=== PATIENT | female | born 1945 | race African-American/Black ===

== ENCOUNTER 2021-02-11 12:02 | Emergency (ER) | payer MEDICARE, SELFPAY ==
--- NOTE | ~2021-02-11 | XR_ITS ---
XR foot RT min 3V 02/11/2021 12:51 INDICATION: Right foot pain PROCEDURE: 4 views right foot COMPARISON: No prior studies for comparison. FINDINGS: Fracture, dislocation or subluxation is not identified. Lisfranc joint intact. There is a d egenerative calcaneal enthesophyte. There is mild soft tissue swelling lateral to the fifth MTP joint . No foreign bodies are identified. IMPRESSION: 1: NO ACUTE BONE OR JOINT ABNORMALITY IDENTIFIED. Reviewed, dictated and finalized at location A.
[2021-02-11 12:09] VITALS: BP 153/70; PULSE 105; RESP 16; TEMP 37.2; O2SAT 100
[2021-02-11 12:23] VITALS: BP 129/61; PULSE 105; RESP 16; TEMP 37.2; O2SAT 100
[2021-02-11] MEDS: ACETAMINOPHEN 500 MG TABLET 1000 MG PO (12:57)
[2021-02-11 13:18] LABS: Basophils Percent Auto 0.7 % (0.2-1.2); Eosinophils Absolute Auto 0.2 K/mm3 (0-0.3); Eosinophils Percent Auto 3.5 % (0-4.4); Hematocrit 24.8 % (37.0-47.0); Hemoglobin 7.5 g/dL (12.0-15.0); Immature Granulocyte Absolute 0.01 K/mm3 (0.00-0.031); Immature Granulocyte Percent A 0.2 % (0-0.5); Lymphocytes Absolute Auto 1.46 K/mm3 (0.9-3.2); Lymphocytes Percent Auto 24.3 % (18.3-44.2); Mean Corpuscular HGB Conc 30.2 g/dl (32-36); Mean Corpuscular Hemoglobin 26.2 pg (26-34); Mean Corpuscular Volume 86.7 fl (80-100); Mean Platelet Volume 10.3 fl (7.4-10.4); Monocytes Absolute Auto 0.5 K/mm3 (0.1-0.6); Neutrophils Absolute Auto 3.7 K/mm3 (1.3-6.7); Neutrophils Percent Auto 62.3 % (45.5-73.1); Platelet Count Result 331 k/mm3 (150-375); Red Blood Count 2.86 M/mm3 (4.2-5.4); Red Cell Distribution Width 16.8 % (11.5-14.5)
[2021-02-11 13:27] VITALS: TEMP 36.9
[2021-02-11 13:28] LABS: Anion Gap 12 mmol/L (8-16); Blood Urea Nitrogen 17 mg/dL (7-17); Calcium 9.7 mg/dL (8.4-10.2); Carbon Dioxide 24 mmol/L (22-30); Chloride 103 mmol/L (98-107); Estimated CRCL calculation 40 ml/min; Estimated Glomerular Filt Rate > 60; Glucose 131 mg/dL (65-110); Sodium 139 mmol/L (137-145); Uric Acid 3.6 mg/dL (2.5-7.5)
--- NOTE | 2021-02-11 14:40 | ED.GENADULT ---
HPI - General Adult General Chief complaint: Extremity Problem,Nontraumatic Stated complaint: right foot soreness Time Seen by Provider: 02/11/21 12:32 Source: RN notes reviewed History of Present Illness HPI narrative: Patient presents emergency department from home for right foot pain. Patient states symptoms been ongoing for 1 week. States the pain is between her fourth and fifth toe in the web space described as burning in nature she denies any trauma or injury she states that the area does at times appear moist she denies any pain rating to the foot or ankle states she is taking nothing for the pain Related Data Home Medications Medication Instructions Recorded Confirmed lisinopril 02/11/21 02/11/21 metformin mg PO 02/11/21 rosuvastatin mg 02/11/21 Allergies Allergy/AdvReac Type Severity Reaction Status Date / Time Sulfa (Sulfonamide Allergy Unknown Anaphylaxis Verified 02/11/21 12:26 Antibiotics) Review of Systems Review of Systems: Gen.: Denies fevers or chills Musculoskeletal: See HPI Neuro: Denies numbness, tingling, weakness Skin: Denies rash Endo: Denies DM PMFSH Past Medical History Medical History (Updated 02/11/21 @ 14:48 by David Escobar DO) Hypertension Social History Social History (Updated 02/11/21 @ 14:45 by David Escobar DO) Smoking status: Never smoker Exam Narrative: APPEARANCE: No acute distress, nontoxic, resting in bed Eyes: EOMI HEENT: Normocephalic, atraumatic, RESPIRATORY: No respiratory distress MUSCULOSKELETAl: Tenderness between the fourth and fifth webspace with mild erythema there is no swelling of the toes the remainder the foot is nontender dorsalis pedis pulse 2+ neurovascularly intact no open wounds NEURO: Awake and alert. Following commands, speech normal, no focal deficits SKIN:: Warm, dry. Normal Color no rash or lesions Course Course Emergency Course: Reviewed old records patient with last hemoglobin several years ago of 8. Patient denies any dizziness denies any black stools last follow-up with PCP Discussed with patient results of workup and diagnosis. Discussed need for follow-up with primary care, proper use of medication, and reasons to return to the emergency department. Patient understands and agrees to current treatment plan Vital Signs Vital signs: Vital Signs Temperature 98.9 F 02/11/21 12:09 Pulse Rate 105 H 02/11/21 12:09 Respiratory Rate 16 02/11/21 12:09 Blood Pressure 153/70 H 02/11/21 12:09 Pulse Oximetry 100 02/11/21 12:09 Temperature 99 F 02/11/21 12:23 Pulse Rate 105 H 02/11/21 12:23 Respiratory Rate 16 02/11/21 12:23 Blood Pressure 129/61 02/11/21 12:23 Pulse Oximetry 100 02/11/21 12:23 Medical Decision Making MDM Narrative Medical decision making narrative: Pain and mild erythema between the webspace of the fourth and fifth toe on the right foot it is likely fungal infection will start on antifungals Vital Signs Vital Signs: Vital Signs Temperature 98.9 F 02/11/21 12:09 Pulse Rate 105 H 02/11/21 12:09 Respiratory Rate 16 02/11/21 12:09 Blood Pressure 153/70 H 02/11/21 12:09 Pulse Oximetry 100 02/11/21 12:09 Temperature 99 F 02/11/21 12:23 Pulse Rate 105 H 02/11/21 12:23 Respiratory Rate 16 02/11/21 12:23 Blood Pressure 129/61 02/11/21 12:23 Pulse Oximetry 100 02/11/21 12:23 Lab Data Result diagrams: 02/11/21 13:12 02/11/21 13:12 Labs: Lab Results 02/11/21 02/11/21 Range/Units 13:12 13:12 WBC 6.0 (4.5-10.0) K/mm3 RBC 2.86 L (4.2-5.4) M/mm3 Hgb 7.5 L (12.0-15.0) g/dL Hct 24.8 L (37.0-47.0) % MCV 86.7 (80-100) fl MCH 26.2 (26-34) pg MCHC 30.2 L (32-36) g/dl RDW 16.8 H (11.5-14.5) % Plt Count 331 (150-375) k/mm3 MPV 10.3 (7.4-10.4) fl Immature Gran % (Auto) 0.2 (0-0.5) % Neut % (Auto) 62.3 (45.5-73.1) % Lymph % (Auto) 24.3 (18.3-44.2) % [place] % (Auto
[2021-02-11] MEDS: NYSTATIN OINTMENT 15 GM TUBE 1 APPLIC TOPICAL (15:03)
[2021-02-11 15:16] VITALS: BP 151/87; PULSE 98; RESP 18; TEMP 36.9; O2SAT 97
== END 2021-02-11 15:18 | disposition home or self-care (01) ==
PROVIDERS: Emergency Provider Emergency Medicine
DX: B35.3 Tinea pedis (principal); I10 Essential (primary) hypertension
CPT/HCPCS: 36415; 73630; 80048; 84550; 85025; 99283; A9270

== ENCOUNTER 2022-07-26 17:23 | Emergency (ER) | payer MEDICARE, SELFPAY ==
--- NOTE | ~2022-07-26 | US_ITS ---
EXAMINATION: US venous doppler LE RT DATE: 07/26/2022 20:19 INDICATION: R lateral thigh pain X 3d . TECHNIQUE: Grayscale images without and with compression and Doppler images of the right lower extrem ity veins were obtained. COMPARISON: None FINDINGS: The right common femoral vein, profunda (deep) femoral vein, femoral vein, popliteal vein, peroneal v ein, posterior tibial veins, gastrocnemius vein, and greater saphenous vein are patent. IMPRESSION: 1. Patent right lower extremity veins. No evidence of deep venous thrombosis. Reviewed, dictated and finalized at location K. OGRAPHY TECHNOLOGIST
--- NOTE | ~2022-07-26 | XR_ITS ---
EXAM: XR hip RT min 3V w AP pelvis, XR femur RT min 2V DATE: 07/26/2022 20:37 HISTORY: pain to R lateral thigh, Hx of hip repalcement . COMPARISON: CT abdomen and pelvis 10/13/2015. FINDINGS: Uncomplicated appearing bilateral proximal femoral fixation. Decreased mineralization. No fracture or dislocation. No lytic or blastic lesion. Degenerative change in the lower lumbar spine. B ilateral hip osteoarthritis. Severe degenerative change in the right knee. AVN changes in the right f emoral head. No erosion or periosteal change. Vascular calcification. IMPRESSION: No acute osseous finding in the pelvis, right hip, or right femur. Reviewed, dictated and finalized at location K. LATION INSPECTOR IMPRESSION: No acute osseous finding in the pelvis, right hip, or right femur.
[2022-07-26 17:27] VITALS: BP 146/89; PULSE 88; RESP 16; TEMP 36.6; O2SAT 99
--- NOTE | 2022-07-26 17:45 | ED.EXTPRO ---
HPI - Extremity Problem General Chief complaint: Extremity Problem,Nontraumatic <REGINE Maldonado Last Filed: 07/26/22 20:13> Stated complaint: right upper leg pain <REGINE Maldonado Last Filed: 07/26/22 20:13> Time Seen by Provider: 07/26/22 17:40 <REGINE Maldonado Last Filed: 07/26/22 20:13> Source: patient <REGINE Maldonado Last Filed: 07/26/22 20:13> Mode of arrival: ambulatory <REGINE Maldonado Last Filed: 07/26/22 20:13> Limitations: no limitations <REGINE Maldonado Last Filed: 07/26/22 20:13> History of Present Illness HPI Narrative: Patient is a 76-year-old female who presents the ED with report of pain to her right lateral thigh. Patient reports the pain first began on Tuesday. It has progressively worsened since then. Worse with ambulating. Described as throbbing. She states the pain is only her lateral thigh, does not radiate down her lower extremity. Denies hip or knee pain. No known injury or fall. No history of blood clots. No swelling of leg. She has been taking Tylenol with minimal relief. Denies abdominal pain, N/V, fevers, numbness/tingling. <REGINE Maldonado Last Filed: 07/26/22 20:13> Related Data Home medications: Home Medications Medication Instructions Recorded Confirmed lisinopril 40 mg tablet 02/11/21 02/11/21 metformin 500 mg tablet,extended mg PO 02/11/21 release 24 hr rosuvastatin 20 mg tablet mg 02/11/21 <REGINE Maldonado Last Filed: 07/26/22 20:13> Allergies/Adverse reactions: Allergies Allergy/AdvReac Type Severity Reaction Status Date / Time Sulfa (Sulfonamide Allergy Unknown Anaphylaxis Verified 02/11/21 12:26 Antibiotics) <REGINE Maldonado Last Filed: 07/26/22 20:13> Review of Systems Review of Systems: CONSTITUTIONAL: Denies fever, chills, or sweats. CARDIOVASCULAR: Denies chest pain. RESPIRATORY: Denies dyspnea. GASTROINTESTINAL: Denies abdominal pain, nausea, vomiting. SKIN: Denies rash or itching. MUSCULOSKELETAL: See HPI. NEUROLOGIC: Denies headache, numbness, or weakness. <Haylee Fierro PA-C - Last Filed: 07/26/22 20:13> All systems reviewed & are unremarkable except as noted in HPI and below <Haylee Fierro PA-C - Last Filed: 07/26/22 20:13> PMFSH Past Medical History Medical History: Medical History (Updated 07/26/22 @ 20:02 by Haylee Fierro PA-C) Hypertension <Haylee Fierro PA-C - Last Filed: 07/26/22 20:13> Surgical History Surgical History: Surgical History (Updated 07/26/22 @ 19:55 by Haylee Fierro PA-C) History of bilateral hip replacements <Haylee Fierro PA-C - Last Filed: 07/26/22 20:13> Social History Social History: Social History Smoking status: Never smoker <Haylee Fierro PA-C - Last Filed: 07/26/22 20:13> Exam Narrative: GENERAL: Well appearing, well-nourished, non-toxic, in no acute distress. HEAD: Normocephalic, atraumatic. NECK: Supple. No adenopathy, no masses. RESPIRATORY: Airway patent, respirations nonlabored. Clear to auscultation bilaterally, no rales, rhonchi, wheezing. CARDIOVASCULAR: Regular rate and rhythm without murmurs, rubs, or gallops. Pedal pulses 2+ and equal bilaterally. MUSCULOSKELETAL: Moves all extremities. Strength/ROM intact without gross deformities. No tenderness over right anterior lateral hip. Tenderness superficially along right lateral more distal thigh. No swelling or bruising noted. No deformities. No tenderness to the right knee. Full range of motion of hip and knee. Sharp touch sensation intact. No calf tenderness. No edema. No calf swelling. No temperature or color changes. SKIN: Warm, dry, normal color. No rashes. NEURO: A&O X3. Speech clear. Cranial nerves II-XII grossly intact. No ataxic moveme
[2022-07-26] MEDS: KETOROLAC 30 MG/ML VIAL (*BKC) IM (20:48)
== END 2022-07-26 21:37 | disposition home or self-care (01) ==
PROVIDERS: Emergency Provider Physician Assistant
DX: M79.651 Pain in right thigh (principal); I10 Essential (primary) hypertension; E11.9 Type 2 diabetes mellitus without complications; Z79.84 Long term (current) use of oral hypoglycemic drugs; Z96.643 Presence of artificial hip joint, bilateral
CPT/HCPCS: 73502; 73552; 93971; 96372; 99284; J1885

== ENCOUNTER 2022-07-27 17:10 | Emergency (ER) | payer MEDICARE, SELFPAY ==
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
[2022-07-27 18:02] VITALS: BP 144/76; PULSE 92; RESP 18; TEMP 36.4; O2SAT 100
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
== END 2022-07-27 19:32 | disposition home or self-care (01) ==
LOC: ANHED 19:04
PROVIDERS: Emergency Provider Emergency Medicine
DX: T75.89XA Other specified effects of external causes, initial encounter (principal); Z77.098 Contact with and (suspected) exposure to other hazardous, chiefly nonmedicinal, chemicals
CPT/HCPCS: 71045; 99283

== ENCOUNTER 2022-08-30 10:15 | Outpatient (RCR) | payer MEDICARE, SELFPAY ==
--- NOTE | 2022-08-10 10:57 | PCPTNOTE ---
Patient called & cancelled scheduled appointment this date due to having to care her sick child. She has been rescheduled.
--- NOTE | 2022-08-20 16:01 | PTOPEVAL1 ---
Assessment and note entered by Ophelia Torres, PT, DPT Evaluation Information Assessment Status Evaluation Diagnosis R hip pain Onset 2-4 weeks Subjective Information Pt states a few weeks ago her lateral thigh started to hurt so bad she was unable to walk. She states she has gotten 2 pain shots and these have helped for a few days. Pt rates her pain at a 15/ 10, she states her pain is 10/10 at its best. Pt states she would like to be able to walk without pain and be able to keep up with her 5 y/o granddaughter. Reported Pain Level Pain Score 10: Self Report Assessment PT Clinical Summary Jackson presents to therapy today for her initial evaluation with a diagnosis of R ITB syndrome. Today she demonstrates decreased active and passive hip and knee ROM that is limited by both pain and strength. Her R hip, knee, and ankle is weakened significantly compared to her uninvolved side. She ambulates with a flexed, antalgic, and unsteady gait with a strong L sided trunk lean to offload her RLE; she hold onto furniture, ojeda, and people to get around during her evaluation today. Pt reports tenderness to palpation of her R ITB but does not report a increase in pain with passive stretching of the same area. A timed gait and strength assessment was not assess today d/t safety concerns. Pt states she is going to follow up with her referring provider, she states she will need pain meds if she is going to continue with therapy. Skilled physical therapy services are indicated to manage pain, to improve strength, to improve safety awareness, to improve functional mobility, and to limit impairments. Plan of Care Interventions Electrical Stimulation,Gait Training,Hot Pack/Cold Pack,Manual Therapy,Neuro Re-education,Patient/ Caregiver Educati,Therapeutic Activities, Therapeutic Exercise,Ultrasound PT Services Indicated Yes Treatment Frequency and 2x/wk for 4 wks Duration These treatments will address the objective and functional deficits as defined above. The patient will be advanced safely and appropriately in order for the patient to progress towards his/her prior level of function. Additional exercises will be introduced and as well as a comprehensive home exercise program upon discharge, if needed, ?to ensure carryover of functional gains achieved in the clinic. This treatment plan has been reviewed and agreement upon by the patient.
--- NOTE | 2022-09-06 10:41 | PCPTNOTE ---
Pt NS for visit today. TABLET MACHINE OPERATOR called pt and she reorted she was sick and forgot to call.
--- NOTE | 2022-09-08 07:58 | PCPTNOTE ---
Pt cancelled today due to illness.
--- NOTE | 2022-09-13 11:03 | PCPTNOTE ---
Pt NS for her appt today when called she stated she was still sick and could not find the number to cancel her appt. She request to cancel remaining appointments.
--- NOTE | 2022-10-18 10:39 | PCPTNOTE ---
Called and left voicemail for patient as she has not returned to therapy in almost 6 weeks. Instructed her to call and advice to either discharge or reschedule. If she does not call within the next week she will be discharged.
--- NOTE | 2022-10-28 13:13 | PTOPDC ---
Assessment and note entered by Ophelia Torres, PT, DPT Evaluation Information Assessment Status Discharge - Pt Not Present Diagnosis R hip pain Onset 2-4 weeks Subjective Information Pt did not show up to scheduled re-evaluation this date. Assessment PT Clinical Summary Jackson was evaluations on 08/20/22 and completed 3 treatments between then today. She had 3 no shows and 3 cancellations. Pt will be discharged at this time d/t the attendance policy. Plan of Care PT Services Indicated Yes
== END 2022-10-28 13:47 | disposition home or self-care (01) ==
LOC: ANHGOSHPT 10:15
PROVIDERS: PCP Family Medicine; Visit Provider Family Medicine
DX: M76.30 Iliotibial band syndrome, unspecified leg (principal)
CPT/HCPCS: 97110; 97112; 97140; 97162; 97530; 99199

== ENCOUNTER 2023-07-08 10:40 | Emergency (ER) | payer MEDICARE, SELFPAY ==
--- NOTE | ~2023-07-08 | XR_ITS ---
EXAMINATION: XR hip BI 2V w AP pelvis DATE: 07/08/2023 11:51 INDICATION: Pain after fall TECHNIQUE: AP view of the pelvis and two views of each hip were obtained on six radiographs. COMPARISON: 07/26/2022 FINDINGS: There are changes of bilateral proximal femur fixation. Bone alignment is normal. No acute fracture is identified. There is mild osteoarthritis of the hips. There is moderate lower lumbar spon dylosis. IMPRESSION: 1. No acute osseous abnormality. Reviewed, dictated and finalized at location B. LE TIER AND LABELER
[2023-07-08 10:59] VITALS: BP 132/77; PULSE 95; RESP 16; TEMP 36.8; O2SAT 99
--- NOTE | 2023-07-08 11:24 | ED.FALL ---
HPI - Fall General Chief Complaint: Fall Stated Complaint: Fall Injury Source: patient Mode of arrival: wheelchair Limitations: no limitations History of Present Illness HPI Narrative: 77-year-old female presented for complaint of pain to the hips and buttocks after a fall yesterday. States she was walking backwards down stairs, thought she was at the bottom, but she had 3 more stairs and when she turned around she fell down the stairs on her buttocks. States she hit her head, but denies LOC. Denies headache or neck pain, dizziness, n/v. Denies pain radiating to the legs, numbness, tingling or weakness. States has pain to the buttocks when pushing on abdomen. States she is sore all over, pain is 10/10. Took Tylenol p.m. last night. Using wheelchair on arrival. Related Data Home Medications Medication Instructions Recorded Confirmed No Home Medications 08/03/22 07/08/23 Allergies Allergy/AdvReac Type Severity Reaction Status Date / Time Sulfa (Sulfonamide Allergy Unknown Anaphylaxis Verified 07/08/23 10:56 Antibiotics) Review of Systems Review of Systems: CONSTITUTIONAL: Denies body aches, fever, chills EYES: Denies visual changes CARDIOVASCULAR: Denies chest pain, palpitations, or edema. RESPIRATORY: Denies cough or dyspnea. GASTROINTESTINAL: Denies abdominal pain, nausea, vomiting, or diarrhea. SKIN: Denies rash, itching, or wounds. MUSCULOSKELETAL: reports back and hip pain NEUROLOGIC: Denies headache, numbness, tingling, or weakness. All systems reviewed & are unremarkable except as noted in HPI and below PMFSH Past Medical History Medical History Hypertension Surgical History Surgical History History of bilateral hip replacements Social History Social History Smoking status: Never smoker Lack of Transportation: No Lack of Food: Never True Current Housing: I Have Housing Concerned About Future Housing: No Difficulty Paying Gas/Electric Bills: No Difficulty Paying for Meds: No Currently Unemployed: No Difficulty w/ Childcare or Family Care: No Comments At time of signature, I have reviewed and agree with nursing past medical, surgical, social and family history unless otherwise noted. Please see nursing chart for further information. There is no relevant family history pertinent to the presenting complaint Exam Narrative: GENERAL: appears in pain; in no acute distress. HEAD: Normocephalic, atraumatic. EYES: conjunctivae clear NECK: Supple. full ROM CHEST: Speaks in full sentences. No respiratory distress. HEART: Regular rate and rhythm. Normal and equal peripheral pulses. ABD: Soft, flat; reports pain in butt with palpation of right lower abdomen. MUSC: Examined while in w/c. No Vertebral point tenderness, no sacral/coccyx tenderness. Tenderness to bilateral posterior hips with palpation. BLEs with normal strength and sensation, slightly decreased range of motion at hips, endorses hip/buttocks pain with movements. No ecchymosis, No open wounds, or obvious deformity; alignment normal, pulse palpable and equal bilaterally, skin warm, dry, pink. Capillary refill less than 3 seconds. Gait slow, sitting in w/c. SKIN: Warm, dry, no rash. NEURO: Alert and oriented x3. Back/Spine/Pelvis: Back/spine/pelvis image: 1. area of pain reported, tender hips with palpation Course Course Emergency Course: Patient is aware of diagnosis, understands and agrees to treatment plan. Anticipatory guidance given. Patient agrees to follow-up as directed and is aware of reasons to seek care at the emergency department. Portions of this record may have been created with voice recognition software Level of Care: Express Care Visit Vital Signs Vital signs: Vital Signs Temperature 98.3 F 07/08/23 10:59 Pulse
[2023-07-08] MEDS: IBUPROFEN 400 MG TABLET 800 MG PO (12:38)
== END 2023-07-08 12:40 | disposition short-term general hospital (02) ==
LOC: EXPGOSH 10:44
PROVIDERS: Emergency Provider Nurse Practitioner Family; PCP Family Medicine
DX: M25.552 Pain in left hip (principal); M25.551 Pain in right hip; I10 Essential (primary) hypertension; W10.9XXA Fall (on) (from) unspecified stairs and steps, initial encounter
CPT/HCPCS: 73521; 99213; A9270; G0463

== ENCOUNTER 2023-07-08 13:11 | Emergency (ER) | payer MEDICARE, SELFPAY ==
--- NOTE | ~2023-07-08 | CT_ITS ---
EXAMINATION: CT lumbar spine wo con DATE: 07/08/2023 15:44 INDICATION: Bilateral hip and tailbone pain post fall TECHNIQUE: Computed tomography (CT) of the lumbar spine was performed without intravenous contrast. A utomated exposure control and iterative reconstruction technique were employed. The dose-length produ ct was 1098.45 mGy-cm. COMPARISON: CT abdomen and pelvis dated 10/13/2015 FINDINGS: 2 mm anterolisthesis L3 on L4 and 4 mm anterolisthesis L4 on L5. 9 degrees thoracolumbar levocurvatur e. Vertebral body heights are normal. Subtle lucent nondisplaced fracture lines extending across the spinous processes of S1 and S2. Subtle cortical buckling along the anterior cortex cortex of the muco sa at the junction of S2 and S3 suggesting the fracture extends transversely but with a likely interv ening fracture plane unable to be clearly visualized. Severe left-sided predominant disc height loss at L3-L4 with associated Modic type III sclerotic endplate changes. Moderate disc height loss at T9-T 10, T10-T11, L4-L5 and with right-sided predominance at L1-L2 and L2-L3. Mild disc height loss at T11 -T12, T12-L1 and L5-S1. There are few sigmoid diverticula without adjacent inflammatory stranding to suggest diverticulitis. Partially visualized screws at the bilateral femoral heads for fixation of li gabby chronic bilateral proximal femoral fractures. The following disc levels are specifically discuss ed: T10-T11: There is moderate right and severe left facet joint osteoarthritis. There is mild right and moderate left neural foraminal stenosis. There is no central canal stenosis. T11-T12: There is severe bilateral facet joint osteoarthritis. There is mild bilateral neural foramin al stenosis. There is no central canal stenosis. T12-L1: Disc is bulging. There is mild bilateral facet joint osteoarthritis. There is no neural rizwan inal stenosis. There is mild central canal stenosis. L1-L2: Disc is bulging. There is moderate bilateral facet joint osteoarthritis. There is mild bilater al neural foraminal stenosis. There is mild central canal stenosis. L2-L3: Disc is bulging. There is hypertrophy of the ligamentum flavum. There is severe bilateral fac et joint osteoarthritis. There is mild bilateral neural foraminal stenosis. There is moderate central canal stenosis. L3-L4: Disc is bulging. There is hypertrophy of the ligamentum flavum. There is severe bilateral face t joint osteoarthritis. There is moderate right and moderate to severe left neural foraminal stenosis . There is severe central canal stenosis. L4-L5: Disc is bulging. There is hypertrophy of the ligamentum flavum. There is severe bilateral face t joint osteoarthritis. There is moderate right and moderate to severe left neural foraminal stenosis . There is severe central canal stenosis. L5-S1: Disc is bulging. There is severe bilateral facet joint osteoarthritis. There is mild bilateral neural foraminal stenosis. There is no central canal stenosis. IMPRESSION: 1. Difficult to visualize nondisplaced likely transverse sacral fracture at the level of S2 and S3. 2. Severe lumbar spondylosis without acute osseous abnormality. Reviewed, dictated and finalized at location A. EWER
[2023-07-08 13:13] VITALS: BP 137/97; PULSE 89; RESP 16; TEMP 36.8; O2SAT 98
--- NOTE | 2023-07-08 15:09 | ED.GENADULT ---
HPI - General Adult General Chief complaint: Extremity Injury, Lower Stated complaint: Fall, Bilateral Hip pain Time Seen by Provider: 07/08/23 15:00 Source: patient Related Data Allergies Allergy/AdvReac Type Severity Reaction Status Date / Time Sulfa (Sulfonamide Allergy Unknown Anaphylaxis Verified 07/08/23 10:56 Antibiotics) [facility] Past Medical History Medical History Hypertension Surgical History Surgical History History of bilateral hip replacements Social History Social History Smoking status: Never smoker Lack of Transportation: No Lack of Food: Never True Current Housing: I Have Housing Concerned About Future Housing: No Difficulty Paying Gas/Electric Bills: No Difficulty Paying for Meds: No Currently Unemployed: No Difficulty w/ Childcare or Family Care: No Course Vital Signs Vital signs: Vital Signs Temperature 36.8 C 07/08/23 13:13 Pulse Rate 89 07/08/23 13:13 Respiratory Rate 16 07/08/23 13:13 Blood Pressure 137/97 H 07/08/23 13:13 Pulse Oximetry 98 07/08/23 13:13 Oxygen Delivery Room Air 07/08/23 13:13 Temperature 36.8 C 07/08/23 13:13 Pulse Rate 89 07/08/23 13:13 Respiratory Rate 16 07/08/23 13:13 Blood Pressure 137/97 H 07/08/23 13:13 Pulse Oximetry 98 07/08/23 13:13 Oxygen Delivery Room Air 07/08/23 13:13 Medical Decision Making Medical Records Medical records reviewed: Yes I reviewed the external patient's medical records. Vital Signs Vital Signs: Vital Signs Temperature 36.8 C 07/08/23 13:13 Pulse Rate 89 07/08/23 13:13 Respiratory Rate 16 07/08/23 13:13 Blood Pressure 137/97 H 07/08/23 13:13 Pulse Oximetry 98 07/08/23 13:13 Oxygen Delivery Room Air 07/08/23 13:13 Temperature 36.8 C 07/08/23 13:13 Pulse Rate 89 07/08/23 13:13 Respiratory Rate 16 07/08/23 13:13 Blood Pressure 137/97 H 07/08/23 13:13 Pulse Oximetry 98 07/08/23 13:13 Oxygen Delivery Room Air 07/08/23 13:13 Imaging Data My impression: Impressions Lumbar Spine CT 07/08/23 16:12 IMPRESSION: 1. Difficult to visualize nondisplaced likely transverse sacral fracture at the level of S2 and S3. 2. Severe lumbar spondylosis without acute osseous abnormality. Radiologist's impression: bilateral x-ray of the hips with AP pelvis showed no acute osseous abnormality X-ray was done today at 11:51 a.m. Critical Care Time Critical Care Time Critical Care Time: No Discharge Plan Discharge Clinical Impression: Closed sacral fracture Patient Disposition: Home, Self-Care Condition: Stable Instructions: Sacral Fracture (ED) Additional Instructions: Return if symptoms are worsening , call doctor hammonds for appointment, continue home medications. Prescriptions: New hydrocodone-acetaminophen 5-325 mg tablet 1 tablet PO DAILY Qty: 20 0RF Follow-up/Referrals: Eliud Torres MD [Physician] - 07/13/23 Mil Parrish DO [Primary Care Provider] -
[2023-07-08] MEDS: IBUPROFEN 600 MG TABLET PO (15:53)
[2023-07-08] MEDS: HYDROcodone/acetaminophen (*CRX) 5-325 MG TABLET 1 TAB PO (15:53)
[2023-07-08 16:00] VITALS: BP 138/90; PULSE 86; RESP 18; O2SAT 98
== END 2023-07-08 17:37 | disposition home or self-care (01) ==
PROVIDERS: Emergency Provider Emergency Medicine; PCP Family Medicine
DX: S32.19XA Other fracture of sacrum, initial encounter for closed fracture (principal); I10 Essential (primary) hypertension; M47.816 Spondylosis without myelopathy or radiculopathy, lumbar region; W19.XXXA Unspecified fall, initial encounter
CPT/HCPCS: 72131; 73521; 99284; A9270

== ENCOUNTER 2023-07-15 08:46 | Emergency (ER) | payer MEDICARE, SELFPAY ==
--- NOTE | 2023-07-15 09:14 | ED.GENADULT ---
HPI - General Adult General Chief complaint: Unspecified Stated complaint: wants prescription for pain meds Time Seen by Provider: 07/15/23 08:54 History of Present Illness HPI narrative: 77-year-old female presented to the ED for a prescription medication issue. Patient was diagnosed with a sacral fracture a few days ago and patient was prescribed narcotic pain medication. The original prescription was written and has 1 pill per day for 20 days. Patient gets her prescriptions [facility] at [facility] as a policy that they were not able to fill any new narcotic pain prescription that is longer than 1 week for this reason patient was only given 7 pills of her initial prescription. Patient does have follow-up scheduled with spine on July 29. Patient states that her pain is still poorly controlled. Patient is uncomfortable appearing in the emergency department. Related Data Allergies Allergy/AdvReac Type Severity Reaction Status Date / Time Sulfa (Sulfonamide Allergy Unknown Anaphylaxis Verified 07/08/23 10:56 Antibiotics) Review of Systems Review of Systems: All systems reviewed & are unremarkable except as noted in HPI and below PMFSH Past Medical History Medical History Hypertension Surgical History Surgical History History of bilateral hip replacements Social History Social History Smoking status: Never smoker Lack of Transportation: No Lack of Food: Never True Current Housing: I Have Housing Concerned About Future Housing: No Difficulty Paying Gas/Electric Bills: No Difficulty Paying for Meds: No Currently Unemployed: No Difficulty w/ Childcare or Family Care: No Exam Narrative: APPEARANCE: Uncomfortable. HEAD: normocephalic, atraumatic. EYES: PERRLA/EOMI, conjunctivae clear. NOSE: Normal no drainage EARS:TMS clear with good light reflex. THROAT: Pharynx clear, no exudate. NECK: Supple. No adenopathy, no masses. RESPIRATORY: Airway patent, respirations nonlabored. Clear to auscultation bilaterally, no rales, rhonchi, wheezing. CARDIOVASCULAR: Regular rate and rhythm without murmurs rubs or gallops. ABDOMINAL: Soft, nontender, nondistended, normal bowel sounds MUSCULOSKELETAL: Tenderness and tailbone NEURO: Alert. Cranial nerves II through XII intact. Good gait. Good coordination SKIN: Warm, dry. Normal Color Course Course Emergency Course: 77-year-old female presented to the emergency department for a prescription issue. Patient will be provided a prescription for additional 14 pills [place]. Patient was encouraged to continue to have close follow-up with her physicians. Discharge Plan Discharge Clinical Impression: Closed sacral fracture Patient Disposition: Home, Self-Care Condition: Stable Instructions: Antibiotic Form, Sacral Fracture (ED) Additional Instructions: Continue to have follow-up with your physicians as scheduled. If you have any worsening symptoms then please call or return to the emergency department. Prescriptions: New hydrocodone-acetaminophen 5-325 mg tablet 1 tablet PO Q12H PRN (Reason: pain) Qty: 14 0RF No Action hydrocodone-acetaminophen 5-325 mg tablet 1 tablet PO DAILY Qty: 20 0RF Follow-up/Referrals: UNKNOWN,DOCTOR [Non-Staff] -
[2023-07-15] MEDS: HYDROcodone/acetaminophen (*CRX) 5-325 MG TABLET 1 TAB PO (09:36)
== END 2023-07-15 10:06 | disposition home or self-care (01) ==
LOC: ANHED 09:29
PROVIDERS: Emergency Provider Emergency Medicine
DX: S32.10XD Unspecified fracture of sacrum, subsequent encounter for fracture with routine healing (principal); Z76.0 Encounter for issue of repeat prescription; I10 Essential (primary) hypertension; Z96.643 Presence of artificial hip joint, bilateral; X58.XXXD Exposure to other specified factors, subsequent encounter
CPT/HCPCS: 99283; A9270

== ENCOUNTER 2024-09-17 19:48 | Emergency (ER) | payer MEDICARE, SELFPAY ==
[2024-09-17 20:04] VITALS: BP 170/80; PULSE 101; RESP 17; TEMP 36.9; O2SAT 98
[2024-09-17 23:46] VITALS: O2SAT 100
[2024-09-18] VITALS: O2SAT 100
[2024-09-18 00:01] VITALS: BP 141/82; O2SAT 100
--- NOTE | 2024-09-18 00:24 | PC.NURSE ---
supplies at bedside for I+D
[2024-09-18 00:32] VITALS: O2SAT 100
[2024-09-18 00:45] VITALS: O2SAT 100
[2024-09-18] MEDS: LIDOCAINE 1% LOCAL INJ 10 ML VIAL INFILTRATE (00:48)
--- NOTE | 2024-09-18 00:49 | PC.NURSE ---
jenna jiménez at bedside for I+D
--- NOTE | 2024-09-18 00:55 | ED.WOUNDLAC ---
HPI - Wound/Laceration General Chief Complaint: Wound/Laceration Stated Complaint: boil on vagina Time Seen by Provider: 09/17/24 23:39 History of Present Illness HPI narrative: 79-year-old female presents to the emergency department for painful lump to her left labia for 3 days. States she has been using topical prid without improvement. No spontaneous drainage or fevers. Denies history of similar presentation. Related Data Allergies Allergy/AdvReac Type Severity Reaction Status Date / Time Sulfa (Sulfonamide Allergy Unknown Anaphylaxis Verified 07/08/23 10:56 Antibiotics) Review of Systems Review of Systems: All systems reviewed & are unremarkable except as noted in HPI and below PMFSH Past Medical History Medical History Hypertension Surgical History Surgical History History of bilateral hip replacements Social History Social History Smoking status: Never smoker Lack of Transportation: No Lack of Food: Never True Current Housing: I Have Housing Concerned About Future Housing: No Difficulty Paying Gas/Electric Bills: No Difficulty Paying for Meds: No Currently Unemployed: No Difficulty w/ Childcare or Family Care: No Exam Narrative: GENERAL: Well-appearing, well-nourished, and in no acute distress. HEAD: Normocephalic, atraumatic. EYES: EOMI. ENT: Nares clear, no rhinorrhea or epistaxis. Mucous membranes moist. NECK: Supple. CHEST: Clear to auscultation. No respiratory distress. HEART: Regular rate and rhythm. No murmur heard. Normal peripheral pulses. ABDOMEN: Soft, nontender, nondistended, normal active bowel sound : Approximately 2 cm nodular lesion to the left labia with central fluctuance, no spontaneous drainage. Areas tenderness to palpation. Bartholin's glands unremarkable EXTREMITIES: Normal range of motion. No edema. SKIN: Warm, dry, no rash. NEURO: No focal deficits. Alert and oriented x3 Course Vital Signs Vital signs: Vital Signs Temperature 98.5 F 09/17/24 20:04 Pulse Rate 101 H 09/17/24 20:04 Respiratory Rate 17 09/17/24 20:04 Blood Pressure 170/80 H 09/17/24 20:04 Pulse Oximetry 98 09/17/24 20:04 Oxygen Delivery Room Air 09/17/24 20:04 Temperature 98.5 F 09/17/24 20:04 Pulse Rate 101 H 09/17/24 20:04 Respiratory Rate 17 09/17/24 20:04 Blood Pressure 170/80 H 09/17/24 20:04 Pulse Oximetry 98 09/17/24 20:04 Oxygen Delivery Room Air 09/17/24 20:04 Procedures Abscess I/D other: Date of Incision: 09/18/24 Time of Incision: 01:00 Side (if applicable): left Local Anesthetic: lidocaine 1% Amount of anesthesia used (mL): 3 Technique: incised with #11 blade Amount of fluid expressed (mL): 2 Packing used?: none I&D Results: Blood MDM - Wound/Laceration MDM Narrative Medical decision making narrative: 79-year-old female presents emergency department for painful lump to her left labia for 3 days. Vitals with the blood pressure, otherwise unremarkable. Patient is afebrile and nontoxic appearing. Exam is significant for 2 cm nodular lesion to the left labia with central fluctuance. Local lidocaine applied and lesion incised with an 11 blade with sanguinous drainage. No purulent drainage. Concern for possible abscess, therefore patient was started on Augmentin and doxycycline to cover for this. I advised to follow-up with gynecology discussed she may need a biopsy if lesion does not resolve with antibiotics as this may be a presentation of labial cancer. She is requesting something for pain, Ne[place] provided. Discussed return precautions. She is agreeable with the plan verbalized understanding. Discharged in stable condition. Discharge Plan Discharge Clinical Impression: Abscess of labia Patient Disposition: Home, Self-Care Condition: Stable Instructions: Antibiotic Form, Abscess (ED) Additional Instructions: You were evaluated in the emergency department for painful lump to your labia. We attempted to drain this but unfortunately did not get any pus out of it. This may be secondary to an infection for which she has been started on antibiotics. You need to follow-up with a glove former to ensure it is improving. If the lump is not improving, you may need a biopsy to evaluate for cancer as discussed. Return to the emergency department if you develop fever, significantly worsening pain or size of lump, or other concerning symptoms. Patient Language: Slovenian Prescriptions: New amoxicillin-pot clavulanate 875-125 mg tablet 1 tablet PO Q12H Qty: 14 0RF hydrocodone-acetaminophen 5-325 mg tablet 1 tablet PO Q8H PRN (Reason: pain) Qty: 10 0RF doxycycline monohydrate 100 mg capsule 100 mg PO BID Qty: 14 0RF No Action hydrocodone-acetaminophen 5-325 mg tablet 1 tablet PO DAILY Qty: 20 0RF hydrocodone-acetaminophen 5-325 mg tablet 1 tablet PO Q12H PRN (Reason: pain) Qty: 14 0RF Follow-up/Referrals: Nimesh Phipps MD [Physician] - PHYSICIAN,EMOTIONAL DISABILITIES TEACHER [Primary Care Provider] -
[2024-09-18 01:22] VITALS: O2SAT 100
[2024-09-18] MEDS: HYDROcodone/acetaminophen (*CRX) 5-325 MG TABLET 1 TAB PO (01:31)
[2024-09-18] MEDS: AMOXICILLIN/CLAVULANATE K 875-125 MG TAB 1 TABLET PO (01:31)
[2024-09-18] MEDS: DOXYCYCLINE HYCLATE 100 MG TABLET PO (01:31)
[2024-09-18 01:42] VITALS: BP 141/82; PULSE 80; RESP 16; O2SAT 100
== END 2024-09-18 01:43 | disposition home or self-care (01) ==
PROVIDERS: Emergency Provider Physician Assistant
DX: N76.4 Abscess of vulva (principal); I10 Essential (primary) hypertension
CPT/HCPCS: 56405; 99283; A9270; J2003

== ENCOUNTER 2024-11-11 13:39 | Emergency (ER) | payer MEDICARE, SELFPAY ==
[2024-11-11 13:41] VITALS: BP 152/82; PULSE 107; RESP 20; TEMP 36.6; O2SAT 100
--- OUTSIDE RECORDS SUMMARY | 2024-11-11 13:42 | XMS_ITS | Clinical Summary ---
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 Gender Identity Not on file Sexual Orientation Not on file Plan of Treatment Health Maintenance Due Date Last Done Comments DEXA Bone Density 1945 Hepatitis C Virus (HCV) Screening 1945 TdaP Immunization 1945 Pneumococcal Immunization (5 0+ years) (1 of 1 - PCV) 09/15/1993 Zoster Immunization (1 of 2) 09/15/1993 Respiratory Syncytial Virus (RSV) Immunization (Adult) (1 - 1-dose 75+ series) 09/15/2018 Influenza Immunization (#1) 2024 SARS-COV-2 Immunization (2023- season) 2024 Hepatitis B Immunization Aged Out No longer eligible based on patient's age to complete this topic Meningococcal Immunization (ACWY) Aged Out No longer eligible based on patient's age to complete this topic Rotavirus Immunization Aged Out No lo nger eligible based on patient's age to complete this topic
--- OUTSIDE RECORDS SUMMARY | 2024-11-11 13:42 | XMS_ITS | Encounter Summary ---
Author Organization [facility] Health Address [facility] [facility] [place] [address] Care Team Providers Care Collection Systems Modeler Name Role Phone Lucina Cobb DO Primary Care Provider [phone] Dario Villafana MD Unavailable Reason for Visit * Reason Onset Date Comments MEDICATION REFILL 11/25/2017 Encounter Details Date Type Department Care Team (Late st Contact Info) Description 11/25/2017 Refill [facility] General Internal Medicine [address] [facility] [address] [place] [address] Lucina Cobb DO [address] [facility] [place] [id number] MEDICATION REFILL Social History Tobacco Use Types Packs/Day Years Used Date Smoking Tobacco: Never Smokeless Tobacco: Former Snuff Quit: 1960 Alcohol Use Standard Drinks/Week Comments No 0 (1 standard drink = 0.6 oz pur e alcohol) Comments Unknown Sex and Gender Information Value Date Recorded Sex Assigned at Not on file 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 Gender Identity Not on file Sexual Orientation Not on file documented as of this encounter Miscellaneous Notes * Telephone Encounter - Karthik Barragan - 11/25/2017 1:54 PM CDT [facility] ATTACHED REFILL REQUEST SENT PER PROTOCOL MIKE 08-12-17 NOV 12-01-17 documented in this encounter Plan of Treatment Not on file documented as of this encounter Visit Diagnoses Not on filedocumented in this encounter Care Teams Collection Systems Modeler Relationship Specialty Start Date End Date Lucina Cobb DO [address] [place] [address] PCP - General 11/15/17 Dario Villafana MD [address] [place] [address] Surgeon Ophthalmology 06/22/22 documented as of this encounter
--- OUTSIDE RECORDS SUMMARY | 2024-11-11 13:42 | XMS_ITS | Encounter Summary ---
Author Organization [facility] Health Address [address] [place] [address] [place] [address] Care Team Providers Care Brickmason Contractor Name Role Phone Lucina Cobb DO Primary Care Provider [phone] Dario Villafana MD Unavailable [phone] Reason for Visit * Reason Onset Date Comments Opened In Error 08/04/2018 Encounter Details Date Type Department Care Team (Late st Contact Info) Description 08/04/2018 Refill [facility] General Internal Medicine [address] [id number] Lucina Cobb DO [address] [facility] [address] [facility] [place] [place] [address] Opened In Error Social History Tobacco Use Types Packs/Day Years Used Date Smoking Tobacco: Never Smokeless Tobacco: Former Snuff Quit: 1960 Alcohol Use Standard Drinks/Week Comments No 0 (1 standard drink = 0.6 oz pur e alcohol) Comments No Sex and Gender Information Value Date Recorded Sex Assigned at Not on file 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
--- OUTSIDE RECORDS SUMMARY | 2024-11-11 13:42 | XMS_ITS | Clinical Summary ---
Author Organization [facility] Address [address] [place] [address] Care Team Providers Care Plywood Layup Line Core Layer Name Role Phone Lucina Cobb Primary Care Provider [phone] Dario Villafana MD Unavailable [phone] Source Comments [facility],non-owned Affiliates and Associated Physician Practices is amultiple site organization consisting of ambulatory clinics and hospital sitesin [place], [place], [place] and [place]. This disclosure is being madepursuant to the Care Everywhere program and may not contain all information available regarding this patient. Last updated 18.[facility] Allergies Active Allergy Reactions Criticality Noted Date Comments Sulfamethoxazole W-Trimethoprim Shortness of Breath High 08/03/2017 Medications * Be aware that medications may not be up to date on this document. Alwaysverify current medications with the patient. rosuvastatin (CRESTOR) 20 MG tabletIndications: Hyperlipidemia, unspecified hyperlipidemia type Take 1 (one) tablet by mouth once daily 90 tablet 3 08/18/19 22 Active acetaminophen-code ine (TYLENOL #3) 300-30 MG tablet Take 1 (one) tablet by mouth every 6 hours as needed for Pain 30 tablet 08/18/19 22 Active Additional Information Patient not taking.Reported on 06/22/2022 cyclobenzaprine (Flexeril) 10 MG tabletIndications: Acute pain of right shoulder Take 1 tablet by mouth three times daily as needed for muscle spasm 20 tablet 07/07/20 22 Active cephalexin (Keflex) 500 MG capsule TAKE 1 CAPSULE BY MOUTH EVERY 6 HOURS 10/14/19 23 Active HYDROcodone-acetam inophen (Chugwater) 7.5-325 MG tablet TAKE 1 TABLET BY MOUTH EVERY 6 HOURS NEEDED FOR PAIN (FOR DENTAL ABSCESS) 10/14/19 23 Active bimatoprost (Lumigan) 0.01 % ophth solution Instill 1 (one) drop into both eyes at bedtime 2.5 mL 11 11/10/19 23 Active timolol maleate (Timoptic) 0.5 % ophthalmic solution Instill 1 (one) drop into both eyes every morning 5 mL 11 11/10/19 23 Active lisinopril (Prinivil; Zestril) 40 MG tabletIndications: Essential hypertension Take 1 tablet by mouth once daily 90 tablet 1 05/24/20 23 Active lidocaine (Lidoderm) 5 % patchIndications:C hronic bilateral low back pain without sciatica APPLY TWO PATCHES TO THE SKIN ONCE DAILY TO MOST PAINFUL AREA. LEAVE ON FOR UP TO 12 HOURS, THEN DON'T USE MORE PATCHES FOR 12 HOURS 60 patch 3 09/30/19 24 Active Active Problems Problem Noted Date Diagnosed Date Depression 07/20/2016 Avascular necrosis of femoral head, right 2014 Nocturia 01/01/2015 Osteoarthritis of spine with radiculopathy, lumb ar region 12/03/2014 Spinal stenosis 12/03/2014 Spondylolisthesis of lumbar region 12/03/2014 Hypovitaminosis D 03/04/2014 Hypercalcemia 01/29/2013 DM type 2 (diabetes mellitus, type 2) 09/04/2012 Dyslipidemia 09/04/2012 HTN (hypertension) 09/04/2012 Colon cancer screening Primary open angle glaucoma (POAG) of left eye, severe stage Primary open angle glaucoma (POAG) of right eye, mild stage Immunizations Immunization Administration Dates Next Due DT (AGE 0-7) 05/18/1997 HEP A VACCINE, ADULT 11/09/2016 PNEUMOCOCCAL PPSV23 12/22/2012,09/04/2012 Pneumococcal Pcv13 Conj 04/15/2016 TDAP (7yrs+) 09/04/2012 ZOSTER VACCINE, LIVE 12/22/2012 Family History Medical History Relation Name Comments Diabetes - Type 2 Paternal Grandfather Relation Name Status Comments Paternal Grandfather Social History Tobacco Use Types Packs/Day Years Used Date Smoking Tobacco: Never Smokeless Tobacco: Former Snuff Quit: 1960 Alcohol Use Standard Drinks/Week Comments No 0 (1 standard drink = 0.6 oz pur e alcohol) PHQ-2 Answer Date Recorded PHQ2 TOTAL SCORE 0 08/18/2021 Comments No Sex and Gender Information Value Date Recorded Sex Assigned at Not on file Legal Sex Female 6:18 AM COMPENSATION BUSINESS PARTNER Gender Identity Not on file Sexual Orientation Not on file Last Filed Vital Signs Vital Sign Reading Time Taken Comments Blood Pressure 150/90 11/02/2022 6:11 AM CDT Pulse 88 11/02/2022 6:11 AM CDT Temperature 36.6 C (97.8 F) 11/02/2022 6:11 AM CDT Respiratory Rate 18 11/02/2022 6:11 AM CDT Oxygen Saturation 100% 11/02/2022 6:11 AM CDT Inhaled Oxygen Concentration - - Weight 73 kg (161 lb) 11/02/2022 6:10 AM CDT Height 160 cm (5' 3 ) 11/02/2022 6:10 AM CDT Body Mass Index 28.52 11/02/2022 6:10 AM CDT Plan of Treatment Health Maintenance Due Date Last Done Comments ZOSTER VACCINE (2 of 3) 02/16/2013 12/22/2012 Respiratory Syncytial Virus (RSV) Vaccine Pt: or over 60 yrs (1 - 1-dose 75+ series) 09/15/2018 DIABETES-SERUM CREATININE 02/25/20222020, 02/27/2019, 03/24/2018, Additional history exists DTAP/TDAP/TD VACCINES (3 - Td or Tdap) 09/04/2022 09/04/2012, 05/18/1997 DIABETES-HGB A1C 12/21/2022 06/22/2022, 07/2021, 03/12/2021, Additional history exists DIABETES-FOOT EXAM WITH MONOFILAMENT 06/22/2023 06/22/2022, 09/23/2020, 02/27/2019, Additional history exists COVID-19 VACCINE ( season) 2024 DEPRESSION SCREENING 07/18/2024 07/07/2022, 06/22/2022, 06/22/2022 DIABETES - URINE PROTEIN SCREENING 07/18/2024 12/24/2013 MEDICARE AWV CALENDAR YEAR 2024 09/23/2020, 10/24/2018 DIABETES RETINOPATHY SCREENING 11/09/2024 11/09/2022, 11/12/2021, 03/05/2021, Additional history exists INFLUENZA VACCINE (Season Ended) 2025 PNEUMOCOCCAL VACCINE 50+ Completed 016, 12/22/2012, 09/04/2012 BONE DENSITY TESTING Discontinued HEPATITIS B VACCINE Aged Out No longe r eligible based on patient's age to complete this topic HIB VACCINE Aged Out No longer eligi ble based on patient's age to complete this topic HPV VACCINE Aged Out No longer eligi ble based on patient's age to complete this topic MENINGOCOCCAL (Group B) VACCINE SHARED DECISION-MAKING Aged Out No longer eligible based on patient's age to complete this topic MENINGOCOCCAL GROUPS A/C/Y/W VACCINE Aged Out No longer eligible based on patient's age to complete this topic Procedures Procedure Name Priority Date/Time Associated Diagnosis Comments HEMOGLOBIN A1C - POINT OF CARE (AMB) [facility] Routine 06/22/2022 7:58 AM COMPENSATION BUSINESS PARTNER Type 2 diabetes mellitus without complication, without long-term current use of insulin BASIC METABOLIC PANEL (CALCIUM TOTAL) Routine 02/25/2021 1:55 PM CDT Type 2 diabetes mellitus with other specified complication, without long-term current use of insulin NE 3 COMP FOOT EXAM COMPLETED Routine 12/01/2017 Type 2 diabetes mellitus without complication, without long-term current use of insulin MICROALBUMIN URINE RANDOM Timed 12/24/2013 1:09 PM CDT from Last 3 Months or Most Recently Relevant to Health Maintenance Results * HEMOGLOBIN A1C - POINT OF CARE (AMB) [facility] (06/22/2022 7:58 AM COMPENSATION BUSINESS PARTNER) Hemoglobin A1c POCT 6.5 % BLOOD SPECIMEN / Unknown 06/22/2022 7:58 AM COMPENSATION BUSINESS PARTNER us Lucina Cobb DO LAB - POINT OF CARE ORDERABLE S Final Result * (ABNORMAL) BASIC METABOLIC PANEL (CALCIUM TOTAL) (02/25/2021 1:55 PM CDT) BUN 24 7 - 26 mg/dL 02/25/2021 2:53 PM [facility] Creatinine 1.13(H) 0.56 - 0.96 mg/dL 02/25/2021 2:53 PM [facility] Sodium 144 136 - 145 mmol/L 02/25/2021 2:53 PM [facility] Potassium 4.1 3.5 - 4.5 mmol/L 02/25/2021 2:53 PM [facility] Chloride 107 98 - 107 mmol/L 02/25/2021 2:53 PM [facility] CO2 25 22 - 29 mmol/L 02/25/2021 2:53 PM [facility] Glucose 121(H) 70 - 115 mg/dL 02/25/2021 2:53 PM [facility] Calcium 9.6 8.4 - 10.2 mg/dL 02/25/2021 2:53 PM [facility] Anion Gap 16 8 - 18 02/25/2021 2:53 PM [facility] BUN/Creatinine Ratio 21 7 - 23 02/25/2021 2:53 PM [facility] Osmolality Calculated 303(H) 270 - 300 mOsm/kg 02/25/2021 2:53 PM [facility] eGFR by CKD-EPI 47(L) >=90 mL/min/1.7 3 m2 02/25/2021 2:53 PM [facility] Blood BLOOD SPECIMEN / Unknown Lab Venipuncture / Unknown 02/25/2021 1:55 PM CDT 02/25/2021 2:27 PM T us Lucina Cobb DO LAB - CHEMISTRY ORDERABLES Fi nal Result [facility] [address] [place] [address], [facility] [phone] * NE 3 COMP FOOT EXAM COMPLETED (Automatically Completed) (12/01/2017) Genes Lucina Cobb, DO - 12/01/2017 left and right foot/feet examined with shoes and socks removed. Visual inspection was normal. Sensory exam with monofilament was within normal limits. Dorsal pedal and posterior tibial pulses were within normal limits. us Lucina Cobb DO NE - PROFESSIONAL SERVICES Fi nal Result * MICROALBUMIN URINE RANDOM (12/24/2013 1:09 PM CDT) Albumin Random Urine 97.0 Not Established mcg/mL [facility] Urine specimen (specimen) (Urine, unspecified source) 12/24/2013 1:09 PM CDT 12/24/2013 2:01 PM CDT us Jackie Bennett MD LAB - URINE CHEMISTRY ORDERAB LES Final Result [address] [phone] from Last 3 Months or Most Recently Relevant to Health Maintenance Insurance [facility] MANAGED MEDICARE ADV [facility] MANAGED MEDICARE ADV Care Teams Plywood Layup Line Core Layer Relationship Specialty Start Date End Date Lucina Cobb DO [address] [place] [address] PCP - General 11/15/17 Dario Villafana MD [facility] [place] [address] Surgeon Ophthalmology 06/22/22
--- OUTSIDE RECORDS SUMMARY | 2024-11-11 13:42 | XMS_ITS | Encounter Summary ---
Author Organization [facility] Health Address [facility] [facility] [address] Care Team Providers Care Java Mobile Developer Name Role Phone Lucina Cobb DO Primary Care Provider Dario Villafana MD Unavailable [phone] Reason for Visit * Reason Onset Date Comments MEDICATION REFILL 01/01/2019 Encounter Details Date Type Department Care Team (Late st Contact Info) Description 01/01/2019 Refill [facility] [address] [facility] [address] [place] [address] Lucina Cobb DO [address] [facility] [place] [id number] MEDICATION REFILL Social History Tobacco Use Types Packs/Day Years Used Date Smoking Tobacco: Never Smokeless Tobacco: Former Snuff Quit: 1960 Alcohol Use Standard Drinks/Week Comments No 0 (1 standard drink = 0.6 oz pur e alcohol) Comments No Sex and Gender Information Value Date Recorded Sex Assigned at Not on file Legal Sex Female 6:18 AM SPRAY MIXER Gender Identity Not on file Sexual Orientation Not on file documented as of this encounter Miscellaneous Notes * Telephone Encounter - Destiny Villalba - 01/01/2019 8:40 AM CDT Refill request sent per protocol to provider MIKE: 10/24/18 NOV: 02/27/19 documented in this encounter Plan of Treatment Not on file documented as of this encounter Visit Diagnoses Not on filedocumented in this encounter Care Teams Java Mobile Developer Relationship Specialty Start Date End Date Lucina Cobb DO [address] [place] [address] PCP - General 11/15/17 Dario Villafana MD [address] [place] [address] Surgeon Ophthalmology 06/22/22 documented as of this encounter
--- OUTSIDE RECORDS SUMMARY | 2024-11-11 13:42 | XMS_ITS | Encounter Summary ---
Author Organization [facility] Address [address] [place], [place] [address] [address] Care Team Providers Care Web Content Manager Name Role Phone Lucina Cobb DO Primary Care Provider [phone] Dario Villafana MD Unavailable [phone] Reason for Visit * Reason Comments Refill Request Encounter Details Date Type Department Care Team (Late st Contact Info) Description 08/10/2022 Refill [facility] Op[facility] [address] [place] [address] Taty Loomis MD [address] [place] [phone] Refill Request Social History Tobacco Use Types Packs/Day Years Used Date Smoking Tobacco: Never Smokeless Tobacco: Former Snuff Quit: 1960 Alcohol Use Standard Drinks/Week Comments No 0 (1 standard drink = 0.6 oz pur e alcohol) PHQ-2 Answer Date Recorded PHQ2 TOTAL SCORE 0 08/18/2021 Comments No Sex and Gender Information Value Date Recorded Sex Assigned at Not on file Legal Sex Female 6:18 AM HISTOLOGY TECHNICIAN Gender Identity Not on file Sexual Orientation Not on file documented as of this encounter Plan of Treatment Not on file documented as of this encounter Visit Diagnoses Not on filedocumented in this encounter Care Teams Web Content Manager Relationship Specialty Start Date End Date Lucina Cobb DO [address] [place] [phone] PCP - General 11/15/17 Dario Villafana MD [address] [place] [address] [phone] Surgeon Ophthalmology 06/22/22 documented as of this encounter
--- OUTSIDE RECORDS SUMMARY | 2024-11-11 13:42 | XMS_ITS | Encounter Summary ---
Author Organization [facility] Address [address] [place], [place] [address] [address] Care Team Providers Care Residential Construction Instructor Name Role Phone Lucina Cobb DO Primary Care Provider [phone] Dario Villafana MD Unavailable [phone] Reason for Visit * Reason Comments Refill Request Encounter Details Date Type Department Care Team (Late st Contact Info) Description 06/10/2020 Refill [facility] [address] [place] [address], [place] [address] Dominick Jackson MD [address] [place] [address] [place] [address] Refill Request Social History Tobacco Use Types Packs/Day Years Used Date Smoking Tobacco: Never Smokeless Tobacco: Former Snuff Quit: 1960 Alcohol Use Standard Drinks/Week Comments No 0 (1 standard drink = 0.6 oz pur e alcohol) Comments No Sex and Gender Information Value Date Recorded Sex Assigned at Not on file Legal Sex Female 6:18 AM NET WPF DEVELOPER Gender Identity Not on file Sexual Orientation Not on file documented as of this encounter Plan of Treatment Not on file documented as of this encounter Visit Diagnoses Not on filedocumented in this encounter Care Teams Residential Construction Instructor Relationship Specialty Start Date End Date Lucina Cobb DO [address] [place] [phone] PCP - General 11/15/17 Dario Villafana MD [address] [place] [phone] Surgeon Ophthalmology 06/22/22 documented as of this encounter
--- OUTSIDE RECORDS SUMMARY | 2024-11-11 13:42 | XMS_ITS ---
Author Organization [facility] Address [address] [place], [place] [address] Care Team Providers Care Neuro Psych Sales Specialist Name Role Phone ADAN RAMIREZ Unavailable [phone] Elias Xiong Unavailable Unavailable REASON FOR VISIT *Fracture check w/xrays Encounters Encounter Location Date Provider Diagnosis [facility] [address] [place], [place] [id number] 12/29/2023 ADAN RAMIREZ Pain in left toe(s) M79.675 ; Nondisplaced unspecified fracture of unspecified lesser toe(s), subsequent encounter for fracture with routine healing S92.506D and Left foot pain M79.672 Assessments Encounter Date Diagnosis (ICD Code) Assessment Notes Treatment Notes Treatment Clinical Notes Section Notes 12/29/2023 Pain in left toe(s) (ICD-10 - M79.675) 12/29/2023 Nondisplaced unspecified fracture of unspecified lesser toe(s), subsequent encounter for fracture with routine healing (ICD-10 - S92.506D) 12/29/2023 Left foot pain (ICD-10 - M79.672) 12/29/2023 Other Continue with surgical shoe and taping. Plan Of Treatment Treatment Notes Assessment Notes Other Continue with surgic al shoe and taping. Progress Notes * Rayshawn DONALDSONOB:1945 (79 yo F)Acc No.[id number]:12/29/2023 Patient: Jackson GOFF Provider: Nathaly Ramirez DPM :1945 A ge:78 Y S ex:Female Date:12/29/2023 Address:[address] [place] [address] [address] [facility] Subjective: * Chief Complaints: * * Fracture check w/xrays * HPI: H PI: Follow Up Visit P raoul presents for follow up visit for fracture to left foot. , Patient states their problem is, unchanged., MA: JR. * ROS: G eneral / Constitutional: Patient denies c hills, fever. E ndocrine: Patient denies e xcessive thirst, frequent urination. ? C ardiovascular: Patient denies s hortness of breath, chest pain. S kin: Patient denies m ole changes. * Medical History: * Surgical History: * Hospitalization/Major Diagno stic Procedure: * Medications: N one Objective: * Vitals: * Examination: P hysical Examination: Gen: T he patient is awake, alert, well developed, well groomed and well nourished. They are in no apparent distress. . Musc: F oot structure is normal. No abnormalities noted. Muscle strength is 5/5 to all joints bilaterally. Pain on palpation of 3rd 4th 5th toe. left . Derm: S kin is warm and dry, with no rashes, good skin turgor and normal hair distribution. . Neuro: G rossly intact to light touch bilateral.. Vasc: D orsalis pedis and posterior tibial pulses 2+ bilaterally. No edema noted. Capillary fill time < 3 seconds to all digits. . X -Ray: LEFT FOOT F racture noted at the 4th proximal phalanx. The fracture is non-displaced X-rays show signs of healing. . Assessment: * Assessment: 1. N ondisplaced unspecified fracture of unspecified lesser toe(s), subsequent encounter for fracture with routine healing - S92.506D (Primary) 2 . P ain in left toe(s) - M79.675 3 . L eft foot pain - M79.672 Plan: * Treatment: * Procedure Codes: 7 3630 X-RAY EXAM OF FOOT, Modifiers: LT * Billing Information: * Visit Code: 44831 Office Visit, Est Pt., Level 3. * Procedure Codes: 75978 X-RAY EXAM OF FOOT. Modifiers: LT * Sign off status: Completed true * Provider: Nathaly Ramirez DPM Date: 0 12/29/2023 Generated for Berkley saunders/Sharmila/Ritchie on: 0 11/11/2024 01:42 PM CDT History and Physical Notes * HPI (History of Present Illness) Category Sub-Category Detail Notes Category Not es HPI Follow Up Visit Patient presents for follow up visit for fracture to left foot. , Patient states their problem is, unchanged., MA: JR Examination Category Sub-Category Detail Notes Category Not es X-Ray LEFT FOOT Fracture noted a t the 4th proximal phalanx. The fracture is non-displaced X-rays show signs of healing. Physical Examination Gen: The patient is awake, alert, well developed, well groomed and well nourished. They are in no apparent distress. Vasc: Dorsalis pedis and p osterior tibial pulses 2+ bilaterally. No edema noted. Capillary fill time < 3 seconds to all digits. Neuro: Grossly intact to li ght touch bilateral. Musc: Foot structure is no rmal. No abnormalities noted. Muscle strength is 5/5 to all joints bilaterally. Pain on palpation of 3rd 4th 5th toe. left Derm: Skin is warm and dry , with no rashes, good skin turgor and normal hair distribution.
--- OUTSIDE RECORDS SUMMARY | 2024-11-11 13:42 | XMS_ITS | Encounter Summary ---
Author Organization [facility] Health Address [facility] [facility] [place] [address] Care Team Providers Care Social Media Specialist Name Role Phone Lucina Cobb DO Primary Care Provider [phone] Dario Villafana MD Unavailable Reason for Visit * Reason Onset Date Comments MEDICATION REFILL 02/27/2018 Encounter Details Date Type Department Care Team (Late st Contact Info) Description 02/27/2018 Refill [facility] [address] [facility] [address] [place] [address] Lucina Cobb DO [address] [facility] [place] [phone] MEDICATION REFILL Social History Tobacco Use Types Packs/Day Years Used Date Smoking Tobacco: Never Smokeless Tobacco: Former Snuff Quit: 1960 Alcohol Use Standard Drinks/Week Comments No 0 (1 standard drink = 0.6 oz pur e alcohol) Comments No Sex and Gender Information Value Date Recorded Sex Assigned at Not on file Legal Sex Female 6:18 AM SANDBLASTER PAINT SPRAYER Gender Identity Not on file Sexual Orientation Not on file documented as of this encounter Miscellaneous Notes * Telephone Encounter - Destiny Villalba - 02/27/2018 12:48 PM CDT Refill request sent per protocol to provider MIKE 11-21-17 NOV 04-04-18 documented in this encounter Plan of Treatment Not on file documented as of this encounter Visit Diagnoses Not on filedocumented in this encounter Care Teams Social Media Specialist Relationship Specialty Start Date End Date Lucina Cobb DO [address] [place] [address] PCP - General 11/15/17 Dario Villafana MD [address] [place] [address] Surgeon Ophthalmology 06/22/22 documented as of this encounter
--- OUTSIDE RECORDS SUMMARY | 2024-11-11 13:42 | XMS_ITS | Continuity of Care Document ---
Author Organization [facility] Address [address] [facility] [address] [place] [address] Phone Care Team Providers Care Digital Color Press Operator Name Role Phone Phoenix Ryan Unavailable Unavailable Procedures Procedure Date Post-op Follow-up Visit Cataract Kit [facility] Post-op Follow-up Visit Cataract Kit [facility] Remove Cataract, Insert Lens Post-op Follow-up Visit [facility] Post-op Follow-up Visit Remove Cataract, Insert Lens Office/outpatient Visit, [facility] Advance Directives Directive Yes / No Effective Date File Name No Information Encounters Encounter Description Practice Location Reason(s) For Visit Diagnoses Date Provider Providers Copied on Encounter [facility], [address], [place], [place], [id number], [place] tel:[phone] [facility] No Information Sep- 5-201 0 Connor Garibay. [facility] [facility] [address], [place], [address], [place]. tel:[phone] Referring Provider: Kj De Dios OD, [address], [address]. tel:[phone] [facility], [address], [place], [place], [address], [place] tel:[phone] [facility] No Information b-2 6-201 0 Krishnasamy Phoenix. [facility] [facility] [address], [facility], [place]. tel:[phone] Referring Provider: Kj De Dios OD, [address], [address]. tel:[phone] [facility], [address] [facility] [address], [place], [place], [id number], [place] tel:[phone] [facility] No Information Aug-2 5-201 0 Krishnasamy Phoenix. [facility] [address], [facility], [place]. tel:[phone] Referring Provider: Kj De Dios OD, [address], [address]. tel:[phone] [facility], [address], [place], [place], [id number], [place] tel:[phone] [facility] No Information 1 2-201 0 Krishnasamy Phoenix. [facility] [address], [address], [place]. tel:[phone] Referring Provider: Kj De Dios OD, [address], [address]. tel:[phone] [facility], [address] [facility] [address], [place], [place], [id number], [place] tel:[phone] [facility] No Information b-0 2-201 0 Krishnasamy Phoenix. [facility] [address], [address], [place]. tel:[phone] Referring Provider: Kj De Dios OD, [address], [address]. tel:[phone] [facility], [address], [place], [place], [id number], tel:[phone] [facility] No Information 1- 0 Krishnasamy Phoenix. [address] [facility] [address], [facility], . tel:[phone] Referring Provider: Kj De Dios OD, [address], [address]. tel:[phone] Office/outpat ient Visit, [facility], [address], [place], [place], [id number], tel:[phone] [facility] No Information 0 Krishnasamy Phoenix. [facility] [address], [facility], [place]. tel:[phone] Referring Provider: Kj De Dios OD, [address], [address]. tel:[phone] Family History Family Member Type Diagnosis Age At Onset No Information Payers Payer name Insurance type Covered alliance party ID Authoriza tion(s) No Information Social History Type Description Quantity Date Captured Comments Sex Female Smoking Status No Information Chief Complaint And Reason For Visit No Information Reason For Referral Reason For Referral No Information History Of Present Illness Encounter Date Complaint History Of Prese nt Illness No Information Functional Status Date Functional Assessmen t No Information Instructions Date Instruction Additional Infor mation No Information Assessments Type Assessment Date No Information Patient Care Teams Name Effective Dates (start - stop) Status Members No Information
--- OUTSIDE RECORDS SUMMARY | 2024-11-11 13:42 | XMS_ITS | Encounter Summary ---
Author Organization [facility] Health Address [facility] [place] [address] Care Team Providers Care Photographic Reproduction Technician Name Role Phone Lucina Cobb DO Primary Care Provider [phone] Dario Villafana MD Unavailable Reason for Visit * Reason Onset Date Comments MEDICATION REFILL 05/08/2018 Encounter Details Date Type Department Care Team (Late st Contact Info) Description 05/08/2018 Refill [facility] [address] [facility] [address] [place] [address] Lucina Cobb DO [address] [facility] [place] [phone] MEDICATION REFILL Social History Tobacco Use Types Packs/Day Years Used Date Smoking Tobacco: Never Smokeless Tobacco: Former Snuff Quit: 1960 Alcohol Use Standard Drinks/Week Comments No 0 (1 standard drink = 0.6 oz pur e alcohol) Comments No Sex and Gender Information Value Date Recorded Sex Assigned at Not on file 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 * Telephone Encounter - Kasandra Villalobos - 05/08/2018 4:09 PM CDT Pt Jackson Gu Pt requesting medication refill on the following medications lisinopril (PRINIVIL; ZESTRIL) 20 MG tablet metFORMIN ER 24hr (GLUCOPHAGE XR) 500 MG tablet Pt is out of the above medications Pharmacy [facility] [address] [facility] [address] [address] [phone] (Phone) MIKE 04/04/18 NOV 06/20/18 Thank You Very Much Kasandra documented in this encounter Plan of Treatment Not on file documented as of this encounter Visit Diagnoses Not on filedocumented in this encounter Care Teams Photographic Reproduction Technician Relationship Specialty Start Date End Date Lucina Cobb DO [facility] [place] [address] PCP - General 11/15/[address] [facility] [place] [address] Surgeon Ophthalmology 06/22/22 documented as of this encounter
--- OUTSIDE RECORDS SUMMARY | 2024-11-11 13:43 | XMS_ITS | Referral Summary ---
Author Organization [facility] Address [address] [place] [address] Care Team Providers Care Certified Family Mediator Name Role Phone Elias Xiong MD Primary Care Provider [phone] Encounters Date Type Department Care Team Description 10/25/2024 9:28 AM CDT - 10/25/2024 10:11 AM CDT Emergency [address] [address] Augustin Johnson MD Subconjunctival hemorrhage of right eye (Primary Dx) Discharge Disposition: Discharge to home or self care from Last 3 Months Allergies Active Allergy Reactions Criticality Noted Date Comments Sulfa (Sulfonamide Antibiotics) Social History Tobacco Use Types Packs/Day Years Used Date Smoking Tobacco: Never Assessed Alcohol Use Standard Drinks/Week Comments No 0 (1 standard drink = 0.6 oz pur e alcohol) Personal Safety Answer Date Recorded Have you ever been in or are you currently in a harmful physical or emotional relationship or is someone making you feel afraid or unsafe? Denies 10/25/2024 Comments Unknown Sex and Gender Information Value Date Recorded Sex Assigned at Not on file Legal Sex Female 7:59 PM ADVANCED PRACTICE RN Gender Identity Not on file Sexual Orientation Not on file Last Filed Vital Signs Vital Sign Reading Time Taken Comments Blood Pressure 174/96 10/25/2024 8:31 AM CDT Pulse 97 10/25/2024 8:31 AM CDT Temperature 37 C (98.6 F) 10/25/2024 8:31 AM CDT Respiratory Rate 16 10/25/2024 8:31 AM CDT Oxygen Saturation 99% 10/25/2024 8:31 AM CDT Inhaled Oxygen Concentration - - Weight 62 kg (136 lb 11 oz) 11/29/2023 1:10 PM C DT Height 162.6 cm (5' 4 ) 11/29/2023 1:10 PM CDT Body Mass Index 23.46 11/29/2023 1:10 PM CDT Plan of Treatment Not on file Insurance [facility] HMO/PPO Address: [address] [address] [place] [address] [facility] MEDIC[facility] Address: [address] [address] [place] [address] Care Teams Certified Family Mediator Relationship Specialty Start Date End Date Elias Xiong MD [address] [place] [id number] PCP - General Family Medicine 08/05/23
--- OUTSIDE RECORDS SUMMARY | 2024-11-11 13:43 | XMS_ITS ---
Author Organization [facility] Address [address] [place], [place] [address] Care Team Providers Care Boxer Operator Name Role Phone ADAN RAMIREZ Unavailable [phone] Elias Xiong Unavailable Unavailable Allergies No Known Allergies REASON FOR VISIT L ft toes fractured Encounters Encounter Location Date Provider Diagnosis [facility] [place] [address] [place], [place] [id number] 12/09/2023 ADAN RAMIREZ Nondisplaced unspecified fracture of unspecified lesser toe(s), initial encounter for closed fracture S92.506A ; Pain in left toe(s) M79.675 and Left foot pain M79.672 Assessments Encounter Date Diagnosis (ICD Code) Assessment Notes Treatment Notes Treatment Clinical Notes Section Notes 12/09/2023 Nondisplaced unspecified fracture of unspecified lesser toe(s), initial encounter for closed fracture (ICD-10 - S92.506A) 12/09/2023 Pain in left toe(s) (ICD-10 - M79.675) 12/09/2023 Left foot pain (ICD-10 - M79.672) 12/09/2023 Other Continue with surgical shoe and taping. Plan Of Treatment Treatment Notes Assessment Notes Other Continue with surgic al shoe and taping. Progress Notes * Luiz GUDalyOB:1945 (79 yo F)Acc No.[id number]:12/09/2023 Progress Notes Patient: Jackson GOFF Provider: Nathaly Ramirez DPM :1945 A ge:78 Y S ex:Female Date:12/09/2023 Address:[address] [place] [address] [address], [place] Subjective: * Chief Complaints: * L ft toes fractured * HPI: H PI: New Complaint P atient presents for a new patient consultation., Patient complains of an issue to left #3, #4, and #5 toe pain. Patient hit foot against bed frame 3 weeks ago. Patient when to emergency room and they did X-rays. Emergency room told her that her #4 toe was broken, even though she is having pain in 3,4,and 5. Emergency room taped #3 and #4 together. , MA: LB. * ROS: G eneral / Constitutional: Patient denies c hills, fever. E ndocrine: Patient denies e xcessive thirst, frequent urination. ? C ardiovascular: Patient denies s hortness of breath, chest pain. S kin: Patient denies m ole changes. * Medical History: * Surgical History: * Hospitalization/Major Diagno stic Procedure: * Medications: N one * Allergies: N .K.D.A.no[Allergies Verified] Objective: * Vitals: * Examination: P hysical [...] 4th proximal phalanx. The fracture is non-displaced . Assessment: * Assessment: 1. N ondisplaced unspecified fracture of unspecified lesser toe(s), initial encounter for closed fracture - S92.506A (Primary) 2 . P ain in left toe(s) - M79.675 ?3. L eft foot pain - M79.672 Plan: * Treatment: * Procedure Codes: 7 3630 X-RAY EXAM OF FOOT, Modifiers: LT * Billing Information: * Visit Code: 97481 Office Visit, Est Pt., Level 3. * Procedure Codes: 97852 X-RAY EXAM OF FOOT. Modifiers: LT * Sign off status: Completed true * Provider: Nathaly Ramirez DPM Date: 12/09/2023 Generated for Berkley saunders/Sharmila/Ritchie on: 11/11/2024 01:42 PM CDT History and Physical Notes * HPI (History of Present Illness) Category Sub-Category Detail Notes Category Not es HPI New Complaint Patient presents for a new patient consultation., Patient complains of an issue to left #3, #4, and #5 toe pain. Patient hit foot against bed frame 3 weeks ago. Patient when to emergency room and they did X-rays. Emergency room told her that her #4 toe was broken, even though she is having pain in 3,4,and 5. Emergency room taped #3 and #4 together. , MA: LB Examination Category Sub-Category Detail Notes Category Not es X-Ray LEFT FOOT Fracture noted a t the 4th proximal phalanx. The fracture is non-displaced Physical Examination Gen: The patient is awake, [...]
--- OUTSIDE RECORDS SUMMARY | 2024-11-11 13:43 | XMS_ITS | Encounter Summary ---
Author Organization [facility] Health Address [facility]3 [facility] [place] [address] Care Team Providers Care City Councilman Name Role Phone Lucina Cobb DO Primary Care Provider [phone] Dario Villafana MD Unavailable [phone] Reason for Visit * Reason Onset Date Comments MEDICATION REFILL 05/25/2019 Encounter Details Date Type Department Care Team (Late st Contact Info) Description 05/25/2019 Refill [facility] [address] [facility] [address] [place] [address] Lucina Cobb DO [address] [facility] [place] [id number] MEDICATION REFILL Social History Tobacco Use Types Packs/Day Years Used Date Smoking Tobacco: Never Smokeless Tobacco: Former Snuff Quit: 1960 Alcohol Use Standard Drinks/Week Comments No 0 (1 standard drink = 0.6 oz pur e alcohol) Comments No Sex and Gender Information Value Date Recorded Sex Assigned at Not on file 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 Patient prefers amoebic over diclofenac MIKE: 05-11-19 NOV: 07-03-19 please enter dispense qty and refills Problem List Identified: office visit on 05-11-19 chronic bilateral low back pain Medication attached per refill protocol/guidlines for further review by provider no PCP / Resident PCP verified yes Allergies Reviewed no Pharmacy Reviewed yes Medication details entered yes- Office visit within the last six months yes if not within last 6 months route to GIM-scheduling as well. Office visit greater than 12 months no routed to GIM scheduling ONLY no. TAL GROWER documented in this encounter Plan of Treatment Not on file documented as of this encounter Visit Diagnoses Not on filedocumented in this encounter Care Teams City Councilman Relationship Specialty Start Date End Date Lucina Cobb DO [address] [place] [address] PCP - General 11/15/17 Dario Villafana MD [address] [place] [address] Surgeon Ophthalmology 06/22/22 documented as of this encounter
--- OUTSIDE RECORDS SUMMARY | 2024-11-11 13:43 | XMS_ITS | Patient Health Record ---
Author Organization [facility] Address [address] [place], [place] [address] Care Team Providers Care Economic Analysis Director Name Role Phone ADAN HDZ Unavailable [phone] Elias Xiong Unavailable Unavailable Allergies No Known Allergies Reason For Referral No Information Encounters Encounter Location Date Provider Diagnosis [facility] [address] [place], [place] [address] 12/09/2023 ADAN HDZ Nondisplaced unspecified fracture of unspecified lesser toe(s), initial encounter for closed fracture S92.506A ; Pain in left toe(s) M79.675 and Left foot pain M79.672 [facility] [place] [address] [place], [place] [id number] 12/29/2023 ADAN HDZ Pain in left toe(s) M79.675 ; Nondisplaced unspecified fracture of unspecified lesser toe(s), subsequent encounter for fracture with routine healing S92.506D and Left foot pain M79.672 [facility] [address] [place], [place] [id number] 12/09/2023 ADAN HDZ Assessments Encounter Date Diagnosis (ICD Code) Assessment Notes Treatment Notes Treatment Clinical Notes Section Notes 12/09/2023 Pain in left toe(s) (ICD-10 - M79.675) 12/09/2023 Nondisplaced unspecified fracture of unspecified lesser toe(s), initial encounter for closed fracture (ICD-10 - S92.506A) 12/29/2023 Pain in left toe(s) (ICD-10 - M79.675) 12/29/2023 Nondisplaced unspecified fracture of unspecified lesser toe(s), subsequent encounter for fracture with routine healing (ICD-10 - S92.506D) 12/29/2023 Left foot pain (ICD-10 - M79.672) 12/09/2023 Left foot pain (ICD-10 - M79.672) 12/09/2023 Other Continue with surgical shoe and taping. 12/29/2023 Other Continue with surgical shoe and taping. Plan Of Treatment No Information Insurance Providers Payer Name Payer Address Payer Phone Subscriber Number Group Number Insured Name Patient Relationship to Insured Coverage Start Date Coverage End Date [facility] [address] [address] [place] [id number] Jackson Gu Self - patient is the insured
--- OUTSIDE RECORDS SUMMARY | 2024-11-11 13:43 | XMS_ITS | Clinical Summary ---
Author Organization [facility] Address [address] [place] [address] Care Team Providers Care Shipwright Supervisor Name Role Phone Elias Xiong MD Primary Care Provider [phone] Allergies Active Allergy Reactions Criticality Noted Date Comments Sulfa (Sulfonamide Antibiotics) Encounters Date Type Department Care Team Description 10/25/2024 9:28 AM CDT - 10/25/2024 10:11 AM CDT Emergency [address] [address] Augustin Johnson MD Subconjunctival hemorrhage of right eye (Primary Dx) Discharge Disposition: Discharge to home or self care from Last 3 Months Medical History Medical History Date Comments Hypertension Hypertension Social History Tobacco Use Types Packs/Day Years [...] on file Legal Sex Female 7:59 PM STRATEGIC CONSULTANT Gender Identity Not on file Sexual Orientation Not on file Obstetrics History Last Filed Vital Signs Vital Sign Reading [...] 11/29/2023 1:10 PM CDT Plan of Treatment Health Maintenance Due Date Last Done Comments Depression Screening 1945 Fall Risk Assessment 1945 Osteoporosis Screening-Bone Density Scan 1945 Hepatitis B Screening 09/15/1961 Well Visit 65+ 09/15/2008 Zoster Vaccine (2 of 3) 02/16/2013 12/22/2012 DTaP/Tdap/Td Vaccine (3 - Td or Tdap) 09/04/2022, 05/18/1997 Influenza Vaccine (Season Ended) 2025 Pneumococcal vaccine 65+ Completed 016, 12/22/2012, 09/04/2012 Insurance [facility] MEDICARE ADVANTAGE Care Teams Shipwright Supervisor Relationship Specialty Start Date End Date Elias Xiong MD [address] [place] [address] PCP - General Family Medicine 08/05/23
--- OUTSIDE RECORDS SUMMARY | 2024-11-11 13:43 | XMS_ITS ---
Author Organization [facility] Address [address] [place], [place] [address] Care Team Providers Care [employer] Name Role Phone ADAN HDZ Unavailable [phone] Elias Xiong Unavailable Unavailable Encounters Encounter Location Date Provider Diagnosis [facility] [address] [place], [place] [id number] 12/09/2023 ADAN HDZ Plan Of Treatment No Information Progress Notes * Rayshawn GUOB:1945 (78 yo F)Acc No.[id number]:12/09/2023 Patient: Jackson GOFF :1945 A ge:78 Y S ex:Female Address:[address], [place] [address] * true * Date: Generated for Jermainei nicky/Sharmila/eTransmitting on: 0 11/11/2024 01:42 PM CDT
--- OUTSIDE RECORDS SUMMARY | 2024-11-11 15:04 | XMS_ITS | Encounter Summary ---
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
--- OUTSIDE RECORDS SUMMARY | 2024-11-11 15:04 | XMS_ITS | Encounter Summary ---
Author Organization [facility] Health Address [facility]3 [facility] [place] [address] Care Team Providers Care Icicle Machine Operator Name Role Phone Lucina Cobb DO Primary Care Provider [phone] Dario Villafana MD Unavailable [phone] Reason for Visit * Reason Onset Date Comments MEDICATION REFILL 01/01/2019 Encounter Details Date Type Department Care Team (Late st Contact Info) Description 01/01/2019 Refill [facility] Internal Medicine [address] [facility] [address] [place] [address] Lucina Cobb DO [address] [facility] [place] [phone] MEDICATION REFILL Social History Tobacco Use Types Packs/Day Years Used Date Smoking Tobacco: Never Smokeless Tobacco: Former Snuff Quit: 1960 Alcohol Use Standard Drinks/Week Comments No 0 (1 standard drink = 0.6 oz pur e alcohol) Comments No Sex and Gender Information Value Date Recorded Sex Assigned at Not on file Legal 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
--- OUTSIDE RECORDS SUMMARY | 2024-11-11 15:04 | XMS_ITS | Clinical Summary ---
Author Organization [facility] [employer] Address [address] [place] [address] Care Team Providers Care Network Program Manager Name Role Phone Lucina Cobb Primary Care Provider [phone] Dario Villafana MD Unavailable [phone] Source Comments [facility] [employer],non-owned Affiliates and Associated Physician Practices is amultiple site organization consisting of ambulatory clinics and hospital sitesin [place], [place], [place] and [place]. This disclosure is being madepursuant to the Care Everywhere program and may not contain all information available regarding this patient. Last updated 18.[facility] [employer] Allergies Active Allergy Reactions Criticality Noted Date [...] 6 HOURS 10/14/19 23 Active HYDROcodone-acetam inophen (Herscher) 7.5-325 MG tablet TAKE 1 TABLET BY [...] on file Legal Sex Female 6:18 AM CONSERVATION ENFORCEMENT OFFICER Gender Identity Not on file Sexual Orientation [...] CARE (AMB) [facility] Routine 06/22/2022 7:58 AM CONSERVATION ENFORCEMENT OFFICER Type 2 diabetes mellitus without complication, without long-term current use of insulin BASIC METABOLIC PANEL (CALCIUM TOTAL) Routine 02/25/2021 1:55 PM CDT Type 2 diabetes mellitus with other specified complication, without long-term current use of insulin KS 3 COMP FOOT EXAM COMPLETED Routine 12/01/2017 Type 2 diabetes mellitus without complication, without long-term current use of insulin MICROALBUMIN URINE RANDOM Timed 12/24/2013 1:09 PM CDT from Last 3 Months or Most Recently Relevant to Health Maintenance Results * HEMOGLOBIN A1C - POINT OF CARE (AMB) [facility] (06/22/2022 7:58 AM CONSERVATION ENFORCEMENT OFFICER) Hemoglobin A1c POCT 6.5 % BLOOD SPECIMEN / Unknown 06/22/2022 7:58 AM CONSERVATION ENFORCEMENT OFFICER us Lucina Cobb DO LAB - POINT OF CARE ORDERABLE S Final Result * (ABNORMAL) BASIC METABOLIC PANEL (CALCIUM TOTAL) (02/25/2021 1:55 PM CDT) BUN 24 7 - 26 mg/dL 02/25/2021 2:53 PM [facility] Creatinine 1.13(H) 0.56 - 0.96 mg/dL 02/25/2021 2:53 PM [facility] Sodium 144 136 - 145 mmol/L 02/25/2021 2:53 PM [facility] Potassium 4.1 3.5 - 4.5 mmol/L 02/25/2021 2:53 PM [facility] Chloride 107 98 - 107 mmol/L 02/25/2021 2:53 PM [facility] CO2 25 22 - 29 mmol/L 02/25/2021 2:53 PM [facility] Glucose 121(H) 70 - 115 mg/dL 02/25/2021 2:53 PM [facility] Calcium 9.6 8.4 - 10.2 mg/dL 02/25/2021 2:53 PM [facility] Anion Gap 16 8 - 18 02/25/2021 2:53 PM [facility] BUN/Creatinine Ratio 21 7 - 23 02/25/2021 2:53 PM [facility] Osmolality Calculated 303(H) 270 - 300 mOsm/kg 02/25/2021 2:53 PM [facility] eGFR by CKD-EPI 47(L) >=90 mL/min/1.7 3 m2 02/25/2021 2:53 PM [facility] Blood BLOOD SPECIMEN / Unknown Lab Venipuncture / Unknown 02/25/2021 1:55 PM CDT 02/25/2021 2:27 PM T us Lucina Cobb DO LAB - CHEMISTRY ORDERABLES Fi nal Result [facility] [address] [place] [address], [facility] [phone] * [place] 3 COMP FOOT EXAM COMPLETED (Automatically Completed) (12/01/2017) Genes Lucina Cobb, DO - 12/01/2017 left and right foot/feet examined with shoes and socks removed. Visual inspection was normal. Sensory exam with monofilament was within normal limits. Dorsal pedal and posterior tibial pulses were within normal limits. us Lucina Cobb DO KS - PROFESSIONAL SERVICES Fi nal Result * MICROALBUMIN URINE RANDOM (12/24/2013 1:09 PM CDT) Albumin Random Urine 97.0 Not Established mcg/mL [facility] Urine specimen (specimen) (Urine, unspecified source) 12/24/2013 1:09 PM CDT 12/24/2013 2:01 PM CDT us Jackie Bennett MD LAB - URINE CHEMISTRY ORDERAB LES Final Result [address] [phone] from Last 3 Months or Most Recently Relevant to Health Maintenance Insurance [facility] MANAGED MEDICARE ADV [facility] MANAGED MEDICARE ADV Care Teams Network Program Manager Relationship Specialty Start Date End Date Lucina Cobb DO [address] [place] [address] PCP - General 11/15/17 Dario Villafana MD [facility] [place] [address] Surgeon Ophthalmology 06/22/22
--- OUTSIDE RECORDS SUMMARY | 2024-11-11 15:04 | XMS_ITS | Encounter Summary ---
Author Organization [facility] Health Address [facility] [facility] [place] [address] Care Team Providers Care Pepper Cutter Name Role Phone Lucina Cobb DO Primary Care Provider [phone] Dario Villafana MD Unavailable [phone] Reason for Visit * Reason Onset Date Comments MEDICATION REFILL 05/25/2019 Encounter Details Date Type Department Care Team (Late st Contact Info) Description 05/25/2019 Refill [facility] Internal Medicine [address] [facility] [address] [place] [address] Lucina Cobb DO [address] [facility] [place] [id number] MEDICATION REFILL Social History Tobacco Use Types Packs/Day Years Used Date Smoking Tobacco: Never Smokeless Tobacco: Former Snuff Quit: 1960 Alcohol Use Standard Drinks/Week Comments No 0 (1 standard drink = 0.6 oz pur e alcohol) Comments No Sex and Gender Information Value Date Recorded Sex Assigned at Not on file Legal Sex Female 6:18 AM UNDERBASTER Gender Identity Not on file Sexual Orientation [...] no routed to GIM scheduling ONLY no. RBASTER documented in this encounter Plan of Treatment Not on file documented as of this encounter Visit Diagnoses Not on filedocumented in this encounter Care Teams Pepper Cutter Relationship Specialty Start Date End Date Lucina Cobb DO [address] [place] [address] PCP - General 11/15/17 Dario Villafana MD [address] [place] [address] Surgeon Ophthalmology 06/22/22 documented as of this encounter
--- OUTSIDE RECORDS SUMMARY | 2024-11-11 15:04 | XMS_ITS | Continuity of Care Document ---
Author Organization [facility] Address [address] [facility] [address] [place] [address] Phone Care Team Providers Care Pediatrics Hospitalist Name Role Phone [place] Ryan Unavailable Unavailable Procedures Procedure Date Post-op Follow-up Visit Cataract Kit SEC [facility] Medical Post-op Follow-up Visit Cataract Kit SEC [facility] Medical Remove Cataract, Insert Lens Post-op Follow-up Visit [facility] Post-op Follow-up Visit Remove Cataract, Insert Lens Office/outpatient Visit, [facility] Advance Directives Directive Yes / No Effective Date File Name No Information Encounters Encounter Description Practice Location Reason(s) For Visit Diagnoses Date Provider Providers Copied on Encounter [facility], [address], [place], [place], [id number], [place] tel:[phone] [facility] No Information Sep- 5-201 0 Connor Garibay. [address] [facility] [address], [place], [address], [place]. tel:[phone] Referring Provider: Kj De Dios OD, [address], [address]. tel:[phone] [facility], [address], [place], [place], [id number], [place] tel:[phone] [facility] No Information b-2 6-201 0 Krishnasamy Phoenix. [address] [facility] [address], [facility], [place]. tel:[phone] Referring Provider: Kj De Dios OD, [address], [address]. tel:[phone] [facility] Eye [facility], [address], [place], [place], [id number], [place] tel:[phone] [facility] No Information Aug-2 5-201 0 Krishnasamy Phoenix. [facility] [address], [facility], [place]. tel:[phone] Referring Provider: Kj De Dios OD, [address], [address]. tel:[phone] [facility], [address], [place], [place], [id number], [place] tel:[phone] [facility] No Information 1 2-201 0 Krishnasamy Phoenix. [facility] [address], [address], [place]. tel:[phone] Referring Provider: Kj De Dios OD, [address], [address]. tel:[phone] [facility], [address], [place], [place], [id number], [place] tel:[phone] [facility] No Information b-0 2-201 0 Krishnasamy Phoenix. [facility] [address], [address], [place]. tel:[phone] Referring Provider: Kj De Dios OD, [address], [address]. tel:[phone] [facility], [address], [place], [place], [address], tel:[phone] [facility] No Information 1- 0 Krishnasamy Phoenix. [address] [facility] [address], [facility], . tel:[phone] Referring Provider: Kj De Dios OD, [address], [address]. tel:[phone] Office/outpat ient Visit, [facility], [address], [place], [place], [id number], tel:[phone] [facility] No Information 0 Krishnasamy Phoenix. [facility] [address], [facility], [place]. tel:[phone] Referring Provider: Kj De Dios OD, [address], [address]. tel:[phone] Family History Family Member Type Diagnosis Age At Onset No Information Payers Payer name Insurance type Covered democrat ID Authoriza tion(s) No Information Social History [...]
--- OUTSIDE RECORDS SUMMARY | 2024-11-11 15:04 | XMS_ITS | Encounter Summary ---
Author Organization [facility] Address [address] [place], [place] [address] [place] [address] Care Team Providers Care Production Shift Supervisor Name Role Phone Lucina Cobb DO Primary Care Provider [phone] Dario Villafana MD Unavailable Reason for Visit * Reason Comments Refill Request Encounter Details Date Type Department Care Team (Late st Contact Info) Description 06/10/2020 Refill [facility] [address] [place] [address], [place] [address] Dominick Jackson MD [address] [place] [address] [place] [address] Refill Request Social History Tobacco Use Types Packs/Day Years Used Date Smoking Tobacco: Never Smokeless Tobacco: Former Snuff Quit: 1960 Alcohol Use Standard Drinks/Week Comments No 0 (1 standard drink = 0.6 oz pur e alcohol) Comments No Sex and Gender Information Value Date Recorded Sex Assigned at Not on file Legal Sex Female 6:18 AM NEWSPAPER WRITER Gender Identity Not on file Sexual Orientation Not on file documented as of this encounter Plan of Treatment Not on file documented as of this encounter Visit Diagnoses Not on filedocumented in this encounter Care Teams Production Shift Supervisor Relationship Specialty Start Date End Date Lucina Cobb DO [address] [place] [id number] PCP - General 11/15/17 Dario Villafana MD [address] [place] [id number] Surgeon Ophthalmology 06/22/22 documented as of this encounter
--- OUTSIDE RECORDS SUMMARY | 2024-11-11 15:04 | XMS_ITS | Clinical Summary ---
Author Organization [facility] Care Team Providers Care Turret Punch Press Operator Name Role Phone Unavailable Primary Care Provider Unavailabl e Social History Tobacco Use Types Packs/Day Years Used Date Smoking Tobacco: Never Assessed Comments Unknown Sex and Gender Information Value Date Recorded Sex Assigned at Not on file Legal Sex Female 3:53 PM CHHA Gender Identity Not on file Sexual Orientation [...]
--- OUTSIDE RECORDS SUMMARY | 2024-11-11 15:04 | XMS_ITS | Clinical Summary ---
Author Organization [facility] Address [address] [place] [address] Care Team Providers Care Front End Software Engineer Name Role Phone Elias Xiong MD Primary Care Provider [phone] Allergies Active Allergy Reactions Criticality Noted Date Comments Sulfa (Sulfonamide Antibiotics) Encounters Date Type Department Care Team Description 10/25/2024 9:28 AM CDT - 10/25/2024 10:11 AM CDT Emergency [address] [address] Augustin Johnson MD Subconjunctival hemorrhage of right [...] on file Legal Sex Female 7:59 PM PHONE ENGINEER Gender Identity Not on file Sexual Orientation [...] vaccine 65+ Completed 016, 12/22/2012, 09/04/2012 Insurance [facility] MEDICARE ADVANTAGE Care Teams Front End Software Engineer Relationship Specialty Start Date End Date Elias Xiong MD [address] [place] [address] PCP - General Family Medicine 08/05/23
--- OUTSIDE RECORDS SUMMARY | 2024-11-11 15:04 | XMS_ITS | Encounter Summary ---
Author Organization [facility] Health Address [facility] [place] [address] Care Team Providers Care Hvac Mechanical Engineer Name Role Phone Lucina Cobb DO Primary Care Provider [phone] Dario Villafana MD Unavailable [phone] Reason for Visit * Reason Onset Date Comments MEDICATION REFILL 11/25/2017 Encounter Details Date Type Department Care Team (Late st Contact Info) Description 11/25/2017 Refill [facility] [address] [facility] [address] [place] [address] Lucina Cobb DO [address] [facility] [place] [phone] MEDICATION REFILL Social History Tobacco Use Types Packs/Day Years Used Date Smoking Tobacco: Never Smokeless Tobacco: Former Snuff Quit: 1960 Alcohol Use Standard Drinks/Week Comments No 0 (1 standard drink = 0.6 oz pur e alcohol) Comments Unknown Sex and Gender Information Value Date Recorded Sex Assigned at Not on file Legal Sex Female 6:18 AM SPOT CHECKER Gender Identity Not on file Sexual Orientation [...] on filedocumented in this encounter Care Teams Hvac Mechanical Engineer Relationship Specialty Start Date End Date Lucina Cobb DO [address] [place] [address] PCP - General 11/15/17 Dario Villafana MD [address] [place] [address] Surgeon Ophthalmology 06/22/22 documented as of this encounter
--- OUTSIDE RECORDS SUMMARY | 2024-11-11 15:04 | XMS_ITS | Encounter Summary ---
Author Organization [facility] Health Address [facility] [place] [address] Care Team Providers Care Puddler Pile Driving Name Role Phone Lucina Cobb DO Primary Care Provider [phone] Dario Villafana MD Unavailable [phone] Reason for Visit * Reason Onset Date Comments MEDICATION REFILL 05/08/2018 Encounter Details Date Type Department Care Team (Late st Contact Info) Description 05/08/2018 Refill [facility] [address] [facility] [address] [place] [address] Lucina Cobb DO [address] [facility] [place] [phone] MEDICATION REFILL Social History Tobacco Use Types Packs/Day Years Used Date Smoking Tobacco: Never Smokeless Tobacco: Former Snuff Quit: 1960 Alcohol Use Standard Drinks/Week Comments No 0 (1 standard drink = 0.6 oz pur e alcohol) Comments No Sex and Gender Information Value Date Recorded Sex Assigned at Not on file Legal Sex Female 6:18 AM WOUND CARE RN Gender Identity Not on file Sexual [...] is out of the above medications Pharmacy [facility] [id number] [facility] [address] [address] [phone] (Phone) MIKE 04/04/18 NOV 06/20/18 Thank You Very Much Kasandra documented in this encounter Plan of Treatment Not on file documented as of this encounter Visit Diagnoses Not on filedocumented in this encounter Care Teams Puddler Pile Driving Relationship Specialty Start Date End Date Lucina Cobb DO [facility] [place] [address] PCP - General 11/15/17 Dario Villafana MD [facility] [place] [address] Surgeon Ophthalmology 06/22/22 documented as of this encounter
--- OUTSIDE RECORDS SUMMARY | 2024-11-11 15:04 | XMS_ITS | Referral Summary ---
Author Organization [facility] Address [address] [place] [address] Care Team Providers Care Air Tester Name Role Phone Elias Xiong MD Primary Care Provider [phone] Encounters Date Type Department Care Team Description 10/25/2024 9:28 AM CDT - 10/25/2024 10:11 AM CDT Emergency [address] [address] Augustin Johnson MD Subconjunctival hemorrhage of right [...] on file Legal Sex Female 7:59 PM ADOLESCENT MEDICINE SPECIALIST Gender Identity Not on file Sexual Orientation [...] Plan of Treatment Not on file Insurance [facility] HMO/PPO Address: [address] [address] [place] [address] [facility] MEDICARE Address: [address] [address] [place] [address] Care Teams Air Tester Relationship Specialty Start Date End Date Elias Xiong MD [address] [place] [id number] PCP - General Family Medicine 08/05/23
--- OUTSIDE RECORDS SUMMARY | 2024-11-11 15:04 | XMS_ITS | Encounter Summary ---
Author Organization [facility] Health Address [facility] [place] [address] Care Team Providers Care Rn Radiation Oncology Name Role Phone Lucina Cobb DO Primary Care Provider [phone] Dario Villafana MD Unavailable [phone] Reason for Visit * Reason Onset Date Comments MEDICATION REFILL 02/27/2018 Encounter Details Date Type Department Care Team (Late st Contact Info) Description 02/27/2018 Refill [facility] [address] [facility] [address] [place] [address] Lucina Cobb DO [address] [facility] [place] [phone] MEDICATION REFILL Social History Tobacco Use Types Packs/Day Years Used Date Smoking Tobacco: Never Smokeless Tobacco: Former Snuff Quit: 1960 Alcohol Use Standard Drinks/Week Comments No 0 (1 standard drink = 0.6 oz pur e alcohol) Comments No Sex and Gender Information Value Date Recorded Sex Assigned at Not on file Legal Sex Female 6:18 AM BIOMEDICAL FIELD SERVICE ENGINEER Gender Identity Not on file Sexual [...] on filedocumented in this encounter Care Teams Rn Radiation Oncology Relationship Specialty Start Date End Date Lucina Cobb DO [address] [place] [address] PCP - General 11/15/17 Dario Villafana MD [address] [place] [address] Surgeon Ophthalmology 06/22/22 documented as of this encounter
--- OUTSIDE RECORDS SUMMARY | 2024-11-11 15:04 | XMS_ITS | Encounter Summary ---
Author Organization [facility] Health Address [address] [place] [address] [place] [address] Care Team Providers Care Director Software Name Role Phone Lucina Cobb DO Primary Care Provider [phone] Dario Villafana MD Unavailable Reason for Visit * Reason Onset Date Comments Opened In Error 08/04/2018 Encounter Details Date Type Department Care Team (Late st Contact Info) Description 08/04/2018 Refill [facility] General Internal Medicine [address] [id number] Lucina Cobb DO [address] [facility] 2L [facility] [place] [address] Opened In Error Social History Tobacco Use Types Packs/Day Years Used Date Smoking Tobacco: Never Smokeless Tobacco: Former Snuff Quit: 1960 Alcohol Use Standard Drinks/Week Comments No 0 (1 standard drink = 0.6 oz pur e alcohol) Comments No Sex and Gender Information Value Date Recorded Sex Assigned at Not on file Legal Sex Female 6:18 AM SENIOR LEAD SOFTWARE ENGINEER Gender Identity Not on file Sexual Orientation Not on file documented as of this encounter Miscellaneous Notes * Telephone Encounter - Kelsy Quiroga - 08/04/2018 11:09 AM CST Error OR LEAD SOFTWARE ENGINEER documented in this encounter Plan of Treatment Not on file documented as of this encounter Visit Diagnoses Not on filedocumented in this encounter Care Teams Director Software Relationship Specialty Start Date End Date Lucina Cobb DO [address] [place] [address] PCP - General 11/15/17 Dario Villafana MD [address] [place] [address] Surgeon Ophthalmology 06/22/22 documented as of this encounter
--- NOTE | 2024-11-11 15:29 | ED_ITS ---
HPI - Skin/Abscess/Foreign Bdy General Chief complaint: Skin/Abscess/Foreign Body Stated complaint: boil on vagina Time Seen by Provider: 11/11/24 14:56 History of Present Illness HPI narrative: Patient is an 79-year-old female who presents to the ER with a boil on my labia majora or labia minora. She reports she had a similar cyst years ago but has not had one recently. Patient reports she 1st noticed the lesion a couple of days ago. She reports it has grown in size and is more painful now. Patient denies any recent fevers, vaginal discharge, urinary symptoms, or abdominal pain. She denies any medical history relevant to this ER visit. Related Data Allergies Allergy/AdvReac Type Severity Reaction Status Date / Time Sulfa (Sulfonamide Allergy Unknown Anaphylaxis Verified 11/11/24 14:47 Antibiotics) Review of Systems Review of Systems: All systems reviewed & are unremarkable except as noted in HPI and below PMFSH Past Medical History Medical History Hypertension Surgical History Surgical History History of bilateral hip replacements Social History Social History Smoking status: Never smoker Lack of Transportation: No Lack of Food: Never True Current Housing: I Have Housing Concerned About Future Housing: No Difficulty Paying Gas/Electric Bills: No Difficulty Paying for Meds: No Currently Unemployed: No Difficulty w/ Childcare or Family Care: No Exam Narrative: GENERAL: Well appearing, well-nourished, non-toxic, in no acute distress. HEAD: Normocephalic, atraumatic. NECK: Supple. No adenopathy, no masses. RESPIRATORY: Airway patent, respirations nonlabored. Clear to auscultation bilaterally, no rales, rhonchi, wheezing. CARDIOVASCULAR: Regular rate and rhythm without murmurs, rubs, or gallops. Peripheral pulses 2+ and equal bilaterally. ABDOMINAL: Soft, nontender, nondistended, no hepatosplenomegaly. Normoactive BS. MUSCULOSKELETAL: Moves all extremities. Strength/ROM intact without gross deformities. SKIN: Warm, dry, normal color. No rashes. NEURO: A&O X3. Speech clear. Cranial nerves II-XII intact. No ataxic movements. PSYCHIATRIC: Appropriate mood and affect. Normal interaction. : approximately?4 cm x 1 cm in size, soft, tender, warm, fluctuant mass on L labia, mild erythema and edema Course Vital Signs Vital signs: Vital Signs Temperature 36.6 C 11/11/24 13:41 Pulse Rate 107 H 11/11/24 13:41 Respiratory Rate 20 11/11/24 13:41 Blood Pressure 152/82 H 11/11/24 13:41 Pulse Oximetry 100 11/11/24 13:41 Oxygen Delivery Room Air 11/11/24 13:41 Temperature 36.6 C 11/11/24 13:41 Pulse Rate 107 H 11/11/24 13:41 Respiratory Rate 20 11/11/24 13:41 Blood Pressure 152/82 H 11/11/24 13:41 Pulse Oximetry 100 11/11/24 13:41 Oxygen Delivery Room Air 11/11/24 13:41 Procedures Abscess I/D bartholin's gland: Date of Incision: 11/11/24 Time of Incision: 17:50 Side (if applicable): left Local Anesthetic: lidocaine 1%, with epi and other anesthetic (LET gel and lidocaine spray) Amount of anesthesia used (mL): 5 Technique: incised with #11 blade Amount of fluid expressed (mL): 1 Irrigation: Yes Packing used?: plain I&D Results: Blood Abcess I&D Additional Comments: approximately 2 inches of 1/4 inch packing was packed into the open incision MDM - Skin/Abscess/Foreign Bdy MDM Narrative Medical decision making narrative: Patient is an 79-year-old female who presents to the ER with a boil on my labia majora or labia minora. She reports she had a similar cyst years ago but has not had one recently. Patient reports she 1st noticed the lesion a couple of days ago. She reports it has grown in size and is more painful now. Patient denies any recent fevers, vaginal discharge, urinary symptoms, or abdominal pain. She denies any medical history relevant to this ER visit. Labs Ordered: Aerobic/anaerobic culture Imaging Ordered: None necessary Medications Ordered: Lookout 5/325 mg PO x 2, Doxycycline 100mg PO, Lidocaine 1% with epi, Toradol 30mg IM Diagnosis: Bartholin abscess Patient Education/Shared MDM: Results of examination shared with patient. She endorses mild improvement following pain medication administration so she will be given another Lookout prior to discharge. Patient strongly advised to follow- up with her PCP and/or OBGYN as soon as possible. She will be discharged home with a prescription for Doxycycline and Lookout. Strict return precautions provided. Patient verbalized understanding and is in agreement with plan. Vital signs stable at time of discharge. All questions answered. Discharge Plan Discharge Clinical Impression: Abscess of Bartholin gland, Abscess of skin or subcutaneous tissue Patient Disposition: Home Condition: Stable Instructions: Antibiotic Form, Bartholin Cyst (ED), Incision and Drainage (ED) Additional Instructions: Please return to the ER with any worsening symptoms. Follow-up with primary care provider and/or OBGYN as soon as possible. Take all medications as prescribed, including regularly scheduled medications. Complete your full dose of antibiotics. Please do not take any baths, soak in hot tubs, or swim in a lopez/pool for the next week. Patient Language: Yi Prescriptions: New doxycycline monohydrate 100 mg capsule 100 mg PO BID Qty: 14 0RF No Action hydrocodone-acetaminophen 5-325 mg tablet 1 tablet PO DAILY Qty: 20 0RF hydrocodone-acetaminophen 5-325 mg tablet 1 tablet PO Q12H PRN (Reason: pain) Qty: 14 0RF amoxicillin-pot clavulanate 875-125 mg tablet 1 tablet PO Q12H Qty: 14 0RF hydrocodone-acetaminophen 5-325 mg tablet 1 tablet PO Q8H PRN (Reason: pain) Qty: 10 0RF doxycycline monohydrate 100 mg capsule 100 mg PO BID Qty: 14 0RF Follow-up/Referrals: PHYSICIAN,RETAIL ADVERTISING SALES MANAGER [Primary Care Provider] - Brain Velásquez MD [Physician] - (OBGYN) Nitin Duckworth MD [Physician] - (primary care) Marshall Peoples MD [Physician] - (OBGYN) Time of Disposition: 18:15
[2024-11-11] MEDS: HYDROcodone/acetaminophen (*CRX) 5-325 MG TABLET 1 TAB PO ×2 (15:54→18:25)
[2024-11-11] MEDS: KETOROLAC 30 MG/ML VIAL (*BKC) IM (15:55)
[2024-11-11 17:20] VITALS: BP 147/85; PULSE 100; RESP 18; O2SAT 97
[2024-11-11] MEDS: DOXYCYCLINE HYCLATE 100 MG TABLET PO (18:25)
== END 2024-11-11 18:33 | disposition home or self-care (01) ==
PROVIDERS: Emergency Provider Registered Nurse
DX: N75.1 Abscess of Bartholin's gland (principal); I10 Essential (primary) hypertension; Z96.643 Presence of artificial hip joint, bilateral
CPT/HCPCS: 56420; 87070; 87075; 87205; 96372; 99283; A9270; J1885; J2004